=== PATIENT | male | born 1950 | race Caucasian/White ===

== ENCOUNTER 2019-07-29 15:42 | Emergency (ER) | payer MEDICARE ==
[~2019-07-29] VITALS: Ht 170.2 cm; Wt 85.0 kg
[~2019-07-29 15:42] MED LIST: AMOXICILLIN500 MG PO; BP MED; DIOVAN160 MG OR; FUROSEMIDE40 MG PO; HYDROCHLOROT12.5 MG OR; LISINOPRIL10 MG PO; LISINOPRIL5 MG PO; LOPRESSOR50 M1 PO; LOPRESSOR50 MG PO; METFORMIN500 MG PO; NO MEDS; NOVOLIN N1000 UNITS SC; NOVOLIN R IJ; NOVOLIN R SC; NOVOLOG MIX100 U/ML SC; OXYCOD/APAP1 TA3 PO; OXYCONTIN10 MG PO; PLAVIX75 MG PO; PRAVASTATIN20 MG PO; TRAMADOL HCL50 MG PO; ULTRAM50 M1 PO
[2019-07-29] MEDS ORDERED: METFORMIN500 MG PO (16:05)
[2019-07-29 17:03] LABS: IMMATURE GRANULOCYTES 0.3 % (0.0-5.0); MEAN CORPUSCULAR HGB 29.6 pG CALC (26.0-32.0); MEAN CORPUSCULAR HGB CONC 33.2 g/L CALC (32.0-36.0); NEUT# 4.2 thou/uL (1.82-7.42); RED BLOOD COUNT 4.09 mill/uL (4.70-6.10); RED CELL DISTRI WIDTH 14.5 % (11.5-15.5)
[2019-07-29 17:04] LABS: HEMATOCRIT 36.4 % (39.0-50.0); HEMOGLOBIN 12.1 g/dl (14.0-18.0)
[2019-07-29 17:27] LABS: ALKALINE PHOSPHATASE 85 u/l (38-126); BILIRUBIN, TOTAL 0.5 mg/dL (0.0-1.4); BUN 12 mg/dL (8-23); BUN/CREATININE RATIO 14 (12-20 (CALC)); CARBON DIOXIDE 25 mmol/l (22-30); CREATININE 0.9 mg/dL (0.7-1.3); GFR > 60 ML/MIN (>=60 (CALC)); GFR FOR AFR.AMER. > 60 ML/MIN (>=60 (CALC)); SGOT/AST 22 u/l (19-48); SODIUM 142 mmol/l (137-146)
[2019-07-29 17:35] LABS: ALBUMIN 3.6 g/dL (3.2-5.0); ANION GAP 13 (6-22 (CALC)); CHLORIDE 108 mmol/l (95-108); TOTAL PROTEIN 6.3 g/dL (6.3-8.2)
[2019-07-29 17:39] LABS: MYOGLOBIN 39 ng/mL (0 - 121)
[2019-07-29 17:59] LABS: URINE BILIRUBIN - DIPSTICK NEGATIVE (NEGATIVE); URINE BLOOD DIPSTICK NEGATIVE (NEGATIVE); URINE COLOR YELLOW; URINE GLUCOSE - DIPSTICK NEGATIVE (NEGATIVE); URINE KETONE NEGATIVE (NEGATIVE); URINE LEUK ESTERASE NEGATIVE (NEGATIVE); URINE NITRITE - DIPSTICK NEGATIVE (Negative); URINE PROTEIN - DIPSTICK TRACE mg/dL (NEG-TRACE); URINE SPECIFIC GRAVITY 1.015
[2019-07-29 18:02] LABS: BARBITURATES NEGATIVE (NEGATIVE); COCAINE NEGATIVE (NEGATIVE); METHADONE NEGATIVE (NEGATIVE); OXCYCODONE NEGATIVE (NEGATIVE); TETRAHYDROCANNABIONOL NEGATIVE (NEGATIVE); TRICYLIC ANTIDEPRESSANTS NEGATIVE (NEGATIVE)
[2019-07-29] MEDS ORDERED: TAMSULOSIN0.4 MG PO (18:17)
[2019-07-29] MEDS ORDERED: ATORVASTATIN CA80 MG PO (18:17)
[2019-07-29] MEDS ORDERED: FUROSEMIDE20 MG PO (18:17)
[2019-07-29] MEDS ORDERED: LISINOPRIL20 MG PO (18:17)
[2019-07-29] MEDS ORDERED: PROZAC20 M1 PO (18:17)
[2019-07-29] MEDS ORDERED: TOPROL XL25 M1 PO (18:17)
[2019-07-29] MEDS ORDERED: APRESOLINE25 MG/TAB PO (18:17)
[2019-07-29] MEDS ORDERED: METFORMIN500 M1 PO (18:17)
[2019-07-29 18:30] VITALS: BP 125/86
== END 2019-07-29 18:30 | disposition home or self-care (01) ==
LOC: ED 15:42
PROVIDERS: Emergency Medicine
DX: Z76.0 Encounter for issue of repeat prescription (principal); R53.1 Weakness; I10 Essential (primary) hypertension; E11.9 Type 2 diabetes mellitus without complications; Z79.84 Long term (current) use of oral hypoglycemic drugs

== ENCOUNTER 2020-01-18 | Emergency (ER) | payer MEDICARE ==
[~2020-01-18] MED LIST changes: +APRESOLINE25 MG/TAB PO; +ATORVASTATIN CA80 MG PO; +FUROSEMIDE20 MG PO; +LISINOPRIL20 MG PO; +METFORMIN500 M1 PO; +PROZAC20 M1 PO; +TAMSULOSIN0.4 MG PO; +TOPROL XL25 M1 PO
[2020-01-18 17:19] LABS: IMMATURE GRANULOCYTES 0.2 % (0.0-5.0); MEAN CELL VOLUME 90.4 fL CALC (80.0-100.0); MEAN CORPUSCULAR HGB 30.6 pG CALC (26.0-32.0); MEAN CORPUSCULAR HGB CONC 33.9 g/L CALC (32.0-36.0); NEUT# 4.11 thou/uL (1.82-7.42); RED BLOOD COUNT 4.77 mill/uL (4.70-6.10); RED CELL DISTRI WIDTH 12.9 % (11.5-15.5)
[2020-01-18 17:20] LABS: HEMATOCRIT 43.1 % (39.0-50.0); HEMOGLOBIN 14.6 g/dl (14.0-18.0)
[2020-01-18] MEDS ORDERED: BUPROPION150 M3 PO (17:36)
[2020-01-18] MEDS ORDERED: CLOPIDOGREL75 MG PO (17:36)
[2020-01-18 17:37] LABS: ALBUMIN 4.2 g/dL (3.2-5.0); ALKALINE PHOSPHATASE 114 u/l (38-126); ANION GAP 15 (6-22 (CALC)); BUN 11 mg/dL (8-23); BUN/CREATININE RATIO 12 (12-20 (CALC)); CARBON DIOXIDE 24 mmol/l (22-30); CHLORIDE 106 mmol/l (95-108); CREATININE 0.9 mg/dL (0.7-1.3); ETHYL ALCOHOL 0 mg/dl (0-30); GFR > 60 ML/MIN (>=60 (CALC)); GFR FOR AFR.AMER. > 60 ML/MIN (>=60 (CALC)); POTASSIUM 3.5 mmol/l (3.5-5.1); SGOT/AST 23 u/l (19-48); SODIUM 141 mmol/l (137-146); TOTAL PROTEIN 7.3 g/dL (6.3-8.2)
[2020-01-18 17:43] LABS: BILIRUBIN, TOTAL 0.9 mg/dL (0.0-1.4)
[2020-01-18 18:46] LABS: URINE BLOOD DIPSTICK NEGATIVE (NEGATIVE); URINE COLOR YELLOW; URINE GLUCOSE - DIPSTICK NEGATIVE (NEGATIVE); URINE KETONE 15 mg/dL (NEGATIVE); URINE LEUK ESTERASE NEGATIVE (NEGATIVE); URINE NITRITE - DIPSTICK NEGATIVE (Negative); URINE PH 7.5 (4.5-8.0); URINE PROTEIN - DIPSTICK NEGATIVE (NEG-TRACE)
[2020-01-18 18:48] LABS: URINE BILIRUBIN - DIPSTICK NEGATIVE (NEGATIVE)
[2020-01-18 18:49] LABS: BARBITURATES NEGATIVE (NEGATIVE); COCAINE NEGATIVE (NEGATIVE); METHADONE NEGATIVE (NEGATIVE); OXCYCODONE NEGATIVE (NEGATIVE); TETRAHYDROCANNABIONOL NEGATIVE (NEGATIVE); TRICYLIC ANTIDEPRESSANTS NEGATIVE (NEGATIVE)
== END 2020-01-18 19:14 | disposition home or self-care (01) ==
PROVIDERS: Family Medicine
DX: F10.27 Alcohol dependence with alcohol-induced persisting dementia (principal); F32.9 Major depressive disorder, single episode, unspecified; I10 Essential (primary) hypertension; E11.9 Type 2 diabetes mellitus without complications; Z95.1 Presence of aortocoronary bypass graft; Z95.5 Presence of coronary angioplasty implant and graft; Z95.0 Presence of cardiac pacemaker; Z79.84 Long term (current) use of oral hypoglycemic drugs

== ENCOUNTER 2020-02-20 18:14 | Observation (INO) | payer MEDICARE ==
[~2020-02-20] VITALS: Ht 170.2 cm; Wt 76.0 kg
[~2020-02-20 18:14] MED LIST changes: +BUPROPION150 M3 PO; +CLOPIDOGREL75 MG PO
--- NOTE | 2020-02-20 18:20 | NUR ---
PT TO ROOM VIA STRETCHER ALERT AND RESPONSIVE
--- NOTE | 2020-02-20 18:42 | NUR ---
PT CONFUSED TALKING ABOUT SNAKES BEING THRISTY AND BEING BIT 4 TIMES, UNABLE TO OBTAINED ACCURATE MED REC INFORMATION
[2020-02-20 18:57] LABS: HEMATOCRIT 38.9 % (39.0-50.0); HEMOGLOBIN 13.5 g/dl (14.0-18.0); IMMATURE GRANULOCYTES 0.2 % (0.0-5.0); MEAN CORPUSCULAR HGB 30.5 pG CALC (26.0-32.0); MEAN CORPUSCULAR HGB CONC 34.7 g/dL CAL (32.0-36.0); NEUT# 7.17 thou/uL (1.82-7.42); RED BLOOD COUNT 4.42 mill/uL (4.70-6.10); RED CELL DISTRI WIDTH 13.5 % (11.5-15.5)
[2020-02-20 19:14] LABS: ALBUMIN 3.9 g/dL (3.2-5.0); ALKALINE PHOSPHATASE 102 u/l (38-126); ANION GAP 12 (6-22 (CALC)); BILIRUBIN, TOTAL 0.9 mg/dL (0.0-1.4); BUN 11 mg/dL (8-23); BUN/CREATININE RATIO 11 (12-20 (CALC)); CARBON DIOXIDE 26 mmol/l (22-30); CHLORIDE 105 mmol/l (95-108); CPK 49 u/l (52-200); GFR > 60 ML/MIN (>=60 (CALC)); GFR FOR AFR.AMER. > 60 ML/MIN (>=60 (CALC)); POTASSIUM 3.4 mmol/l (3.5-5.1); SGOT/AST 29 u/l (19-48); SODIUM 140 mmol/l (137-146); TOTAL PROTEIN 7.1 g/dL (6.3-8.2)
--- NOTE | 2020-02-20 19:24 | NUR ---
PT DENIES COMPLAINTS. RESPS EVEN, UNLABBORED. PT ALERT TO NAME ONLY AT THIS TIME.
[2020-02-20 19:26] LABS: MYOGLOBIN 64 ng/mL (0 - 121)
[2020-02-20 20:17] LABS: URINE BLOOD DIPSTICK SMALL (NEGATIVE); URINE COLOR YELLOW; URINE GLUCOSE - DIPSTICK NEGATIVE (NEGATIVE); URINE KETONE TRACE mg/dL (NEGATIVE); URINE LEUK ESTERASE TRACE (NEGATIVE); URINE NITRITE - DIPSTICK NEGATIVE (Negative); URINE PROTEIN - DIPSTICK 30 mg/dL (NEG-TRACE); URINE SPECIFIC GRAVITY >=1.030
[2020-02-20 20:19] LABS: URINE BILIRUBIN - DIPSTICK NEGATIVE (NEGATIVE)
[2020-02-20 20:22] LABS: BARBITURATES NEGATIVE (NEGATIVE); COCAINE NEGATIVE (NEGATIVE); METHADONE NEGATIVE (NEGATIVE); OXCYCODONE NEGATIVE (NEGATIVE); TETRAHYDROCANNABIONOL NEGATIVE (NEGATIVE); TRICYLIC ANTIDEPRESSANTS NEGATIVE (NEGATIVE)
--- NOTE | 2020-02-20 21:04 | NUR ---
PT SLEEPING. RESPS EVEN, UNLABBORED
--- NOTE | 2020-02-20 22:00 | NUR ---
REPORT ATTEMPTED NURSE NOT READY. PT SLEEPING. RESP EVEN,UNLABBORED
[2020-02-20 22:49] VITALS: BP 169/86
--- NOTE | 2020-02-20 23:40 | NUR ---
Received report from ED NURSE BOYD, PATIENT TRANSPORTED VIA BED, PATIENT AMBULATED GOING TO BED, ORIENETD TO ROOM AND CALL LIGHT SYSTEM.
[2020-02-20 23:53] VITALS: BP 139/83
--- NOTE | 2020-02-21 | NUR ---
PATIENT APPEARS TO BE SLEEPING WITH EYES CLOSED, WITH EVEN UNLABORED BREATHING CALL LIGHT AT REACH.
[2020-02-21 03:57] VITALS: BP 134/80
--- NOTE | 2020-02-21 05:05 | NUR ---
PATIENT APPEARS TO BE SLEEPING WITH EYES CLOSED EVEN UNLABORED BREATHING CALL LIGHT AT REACH.
--- NOTE | 2020-02-21 07:15 | NUR ---
REPORT RECEIVED FROM JOAQUIN CHUN;PT APPEARS TO BE SLEEPING IN SUPINE POSITION;NO S/S OF DISTRESS NOTED;RESPIRATIONS EVEN AND UNLABORED ON RA;TELE MONITORING IN PLACE;IV FLUIDS INFUSING WITH EASE PER ORDER;ALL SAFETY PRECAUTIONS IN PLACE WITH BED IN THE LOWEST POSITION AND BED ALARM ON FOR SAFETY;CALL LIGHT IN REACH;WILL CONTINUE TO MONITOR
[2020-02-21] MEDS ORDERED: LOPRESSOR25 MG PO (08:03)
[2020-02-21] MEDS ORDERED: BUPROPION HCL150 M2 PO (08:03)
[2020-02-21] MEDS ORDERED: CLOPIDOGREL75 MG PO (08:03)
[2020-02-21] MEDS ORDERED: LISINOPRIL20 MG PO (08:03)
[2020-02-21] MEDS ORDERED: ATORVASTATIN CA80 MG PO (08:04)
[2020-02-21] MEDS ORDERED: METFORMIN500 M2 PO (08:04)
[2020-02-21] MEDS ORDERED: TAMSULOSIN HCL0.4 MG PO (08:05)
[2020-02-21] MEDS ORDERED: FLUOXETINE40 MG PO (08:05)
--- NOTE | 2020-02-21 08:05 | NUR ---
ADDED MEDS FROM PT'S PHARMACY CLAIM HISTORY TO [facility]LE [facility]
[2020-02-21 08:53] VITALS: BP 160/85
--- NOTE | 2020-02-21 09:00 | NUR ---
PT RESTING IN SEMI FOWLERS POSITION,A&O TO PERSON AND PLACE;VS OBTAINED AND ASSESSMENT COMPLETED;PT DENIES ANY CURRENT PAIN OR DISCOMFORTS;RESPIRATIONS EVEN AND UNLABORED ON RA,CLEAR LUNG SOUNDS;ABDOMEN SOFT ON PALPATION AND ACTIVE IN ALL 4 QUADRANTS;STRONG PEDAL PULSES;SKIN INTACT;TELE MONITORING IN PLACE;EMS #20G TO LFA INFUSING NS @ 100ML/HR,SITE APPEARS HEALTHY;PT DENIES ANY ADDITIONAL NEEDS AT THIS TIME AND IS ENCOURAGED TO CALL FOR ASSISTANCE IF NEEDED;FALL PRECAUTIONS IN PLACE WITH BED IN THE LOWEST POSITION AND BED ALARM ON FOR SAFETY;CALL LIGHT IN REACH;WILL CONTINUE TO MONITOR
--- NOTE | 2020-02-21 10:29 | NUR ---
AT BEDSIDE DISCUSSING POC.
[2020-02-21 10:55] VITALS: BP 147/78
--- NOTE | 2020-02-21 11:05 | NUR ---
PT RESTING IN SEMI FOWLERS POSITION;RESPIRATIONS EVEN AND UNLABORED ON RA;PT DENIES ANY CURRENT PAIN OR DISCOMFORTS;TELE MONITORING IN PLACE;IV FLUIDS CONTINUE TO INFUSE WITH EASE PER ORDER;ACCUCHECK 128,NO COVERAGE NEEDED;ASSESSMENT REMAINS UNCHANGED AT THIS TIME;PT DENIES ANY ADDITIONAL NEEDS AND IS ENCOURAGED TO CALL FOR ASSISTANCE IF NEEDED;BED IN THE LOWEST POSITION WITH BED ALARM ON FOR SAFETY;CALL LIGHT IN REACH;WILL CONTINUE TO MONITOR
[2020-02-21 14:55] VITALS: BP 132/68
--- NOTE | 2020-02-21 15:50 | NUR ---
PT RESTING IN SEMI FOWLERS POSITION;RESPIRATIONS EVEN AND UNLABORED ON RA;PT DENIES ANY CURRENT PAIN OR NEEDS;TELE MONITORING IN PLACE;IV FLUIDS CONTINUE TO INFUSE TO LFA WITH EASE;ALL SAFETY PRECAUTIONS REMAIN IN PLACE WITH BED IN THE LOWEST POSITION AND CALL LIGHT IN REACH;WILL CONTINUE TO MONITOR
--- NOTE | 2020-02-21 18:43 | NUR ---
EMS REMOVED FROM LAC WITH CATHETER INTACT DUE TO EXPIRATION, NEW #22G STARTED TO RAC ON 2ND ATTEMPT BY THIS WRITTER,PT TOLERATED WELL AND FLUIDS RESTARTED AT THIS TIME;WILL CONTINUE TO MONITOR
--- NOTE | 2020-02-21 19:05 | NUR ---
ASSESSMENT COMPLETED. NO DISTRESS NOTED;ALERT AND ORIENTED TO PLACE AND PERSON. BED ALARM SET FOR SAFETY AND RE-EDUCATED WINCHER LIGHT; VERBALIZES UNDERSTANDING. DENIES NEEDS/PAIN. VOICES NO CONCERNS. WILL CONTINUE TO MONITOR.
[2020-02-21 19:18] VITALS: BP 153/89
--- NOTE | 2020-02-21 23:07 | NUR ---
RESTING IN BED WITH EYES CLOSED; RESP. EVEN AND UNLABORED. AWAKENS WITH VERBAL STIMULI. BED ALARM ON. CALL LIGHT IS IN REACH.
[2020-02-21 23:48] VITALS: BP 156/85
[2020-02-22] VITALS (8 sets, daily range): BP systolic 140–190; BP diastolic 78–94
--- NOTE | 2020-02-22 02:26 | NUR ---
PT. RESTING IN BED WITH EYES CLOSED; RESP. EVEN AND UNLABORED. CALL LIGHT IS IN REACH.
--- NOTE | 2020-02-22 07:15 | NUR ---
REPORT RECEIVED FROM JOAQUIN MALONE;PT APPEARS TO BE SLEEPING IN SEMI FOWLERS POSITION;RESPIRATIONS EVEN AND UNLABORED ON RA;NO S/S OF DISTRESS NOTED;TELE MONITORING IN PLACE;IV FLUIDS INFUSING WITH EASE PER ORDER;ACCCUHECK, ORANGE JUICE WAS PROVIDED;ALL SAFETY PRECAUTIONS REINFORCED WITH BED IN THE LOWEST POSITION AND BED ALARM ON FOR SAFETY;CALL LIGHT IN REACH;WILL CONTINUE TO MONITOR
--- NOTE | 2020-02-22 08:10 | NUR ---
PT RESTING IN SEMI FOWLERS POSITION,A&O X2;VS OBTAINED AND ASSESSMENT COMPLTED;CURRENT BP 179/93 HR 61, ALL MORNING MEDICATIONS ADMINISTERED;PT DENIES ANY CURRENT PAIN OR DISCOMFORTS,PAIN SCALE AND REPORTING EDUCATED;RESPIRATIONS EVEN AND UNLABORED ON RA,CLEAR LUNG SOUNDS;ABDOMEN SOFT ON PALPATION AND ACTIVE IN ALL 4 QUADRANTS;WEAK PEDAL PULSES;SKIN INTACT;TELE MONITORING IN PLACE;#22G TO RAC INFUSING NS @ 100ML/HR,SITE APPEARS HEALTHY;PT DENIES ANY ADDITIONAL NEEDS AND IS ENCOURAGED TO CALL FOR ASSISTANCE IF NEEDED;BED ALARM ON FOR SAFETY;CALL LIGHT IN REACH;WILL CONTINUE TO MONITOR
--- NOTE | 2020-02-22 09:52 | NUR ---
BP RE-CHECK 170/89 HR 62, DENNISANRP ALREADY NOTIFIED OF ELEVATED BP.NO NEW ORDERS RECEIVED AT THIS TIME.
--- NOTE | 2020-02-22 10:00 | NUR ---
AT BEDSIDE DISCUSSING POC INCLUDING POTENTIAL D/C HOME.
[2020-02-22] MEDS ORDERED: KEFLEX500 MG PO (10:01)
--- NOTE | 2020-02-22 10:33 | NUR ---
PT SITTING AT BEDSIDE ANXIOUS TO GO HOME, BP 190/80 MANUALLY.REGINALD COLLINS NOTIFIED AND NEW ORDERS TO BE RECIEVED.
--- NOTE | 2020-02-22 11:05 | NUR ---
PT RESTING IN SEMI FOWLERS POSITION,CONTINUES TO BE ANXIOUS TO GO HOME;RESPIRATIONS EVEN AND UNLABORED ON RA;PT DENIES ANY CURRENT PAIN OR NEEDS;TELE MONITORING IN PLACE;ACCUCHECK 97, NO COVERAGE NEEDED;BP 182/94 HR 61, PT MEDICATED WITH X1 NORVASC 5MG PO;PT DENIES ANY ADDITIONAL NEEDS AT THIS TIME AND IS ENCOURAGED TO CALL FOR ASSISTANCE IF NEEDED;FALL PRECAUTIONS REMAIN IN PLACE WITH BED ALARM ON FOR SAFETY;CALL LIGHT IN REACH;WILL CONTINUE TO MONITOR
--- NOTE | 2020-02-22 12:23 | NUR ---
BP RE-CHECK 170/90
--- NOTE | 2020-02-22 12:39 | NUR ---
PT BP 170/90, PT TO BE MEDICATED WITH PRN APRESOLINE 10MG IVP BY JOAQUIN CHIANG;WILL CONTINUE TO MONITOR FOR EFFECTIVENESS
--- NOTE | 2020-02-22 13:09 | NUR ---
BP RE-CHECK 159/79 HR 70.
--- NOTE | 2020-02-22 13:12 | NUR ---
SPOKE WITH PATRICIA (SON) REGARDING D/C;INSTRUCTED ANDSEJALW ON ABX KEFLEX WHICH WAS SENT TO [facility] AND TO MONITOR PT BP, SON VERBALIZES UNDERSTANDING;SON NOT ABLE TO MEMBERSHIP SALES REPRESENTATIVE PT UNTIL APPROX 1700;NOTIFIED PT AND VERBALIZES UNDERSTANDING;WILL CONTINUE TO MONITOR
--- NOTE | 2020-02-22 15:35 | NUR ---
PT RESTING IN SEMI FOWLERS POSITION;RESPIRATIONS EVEN AND UNLABORED ON RA;PT DENIES ANY CURRENT PAIN OR NEEDS;TELE MONITORING IN PLACE;PT RE-EDUCATED ON SON PICKING HIM UP FOR D/C AT APPROX 1700 AND VERBALIZES UNDERSTANDING;PT ENCOURAGED TO CALL FOR ASSISTANCE IF NEEDED;ASSESSMENT REMAINS UNCHANGED AT THIS TIME; BED ALARM REMAINS ACTIVE;CALL LIGHT IN REACH;WILL CONTINUE TO MONITOR
--- NOTE | 2020-02-22 16:25 | NUR ---
ALL DISCHARGE INSTRUCTIONS PROVIDED AT THIS TIME;PT INSTRUCTED TO TAKE ABX DIRECTED AND MONITOR BLOOD PRESURE;KELFEX ABX PROVIDED PER CAYDEN;SON (PATRICIA) ALSO EDUCATED ON ALL D/C INSTRUCTIONS AND VERBALIZED UNDERSTANDING;WHEELCHAIR TO BE PROVIDED FOR D/C HOME.[facility] TO TRANSPORT PT HOME.
== END 2020-02-22 16:29 | disposition home or self-care (01) ==
LOC: ED 18:14 → ED-I 19:55 → ED 20:37 → MS2 20:38 → ED-I 20:38 → MS2 20:39
PROVIDERS: Emergency Medicine; ADMIT Internal Medicine; ATTEND Internal Medicine
DX: F03.91 Unspecified dementia, unspecified severity, with behavioral disturbance (principal); Z91.83 Wandering in diseases classified elsewhere; N39.0 Urinary tract infection, site not specified; E87.6 Hypokalemia; I10 Essential (primary) hypertension; E11.9 Type 2 diabetes mellitus without complications; H91.91 Unspecified hearing loss, right ear; Z95.1 Presence of aortocoronary bypass graft; Z95.5 Presence of coronary angioplasty implant and graft; Z95.0 Presence of cardiac pacemaker; Z79.84 Long term (current) use of oral hypoglycemic drugs
CPT/HCPCS: G0378

== ENCOUNTER 2020-03-14 | Emergency (ER) | payer MEDICARE ==
[~2020-03-14] MED LIST changes: +BUPROPION HCL150 M2 PO; +FLUOXETINE40 MG PO; +KEFLEX500 MG PO; +LOPRESSOR25 MG PO; +METFORMIN500 M2 PO; +TAMSULOSIN HCL0.4 MG PO
[2020-03-14] MEDS ORDERED: LIBRIUM25 M1 PO (15:14)
[2020-03-14] MEDS ORDERED: VIVARIN PO (15:16)
[2020-03-14 15:20] LABS: IMMATURE GRANULOCYTES 0.2 % (0.0-5.0); MEAN CORPUSCULAR HGB 30.2 pG CALC (26.0-32.0); MEAN CORPUSCULAR HGB CONC 33.9 g/dL CAL (32.0-36.0); NEUT# 6.59 thou/uL (1.82-7.42); RED BLOOD COUNT 5.2 mill/uL (4.70-6.10); RED CELL DISTRI WIDTH 13.4 % (11.5-15.5)
[2020-03-14 15:23] LABS: HEMATOCRIT 46.3 % (39.0-50.0); HEMOGLOBIN 15.7 g/dl (14.0-18.0)
[2020-03-14 15:39] LABS: ALKALINE PHOSPHATASE 124 u/l (38-126); AMYLASE 54 u/l (30-110); ANION GAP 16 (6-22 (CALC)); BUN 16 mg/dL (8-23); BUN/CREATININE RATIO 19 (12-20 (CALC)); CARBON DIOXIDE 25 mmol/l (22-30); CHLORIDE 101 mmol/l (95-108); CREATININE 0.9 mg/dL (0.7-1.3); GFR > 60 ML/MIN (>=60 (CALC)); GFR FOR AFR.AMER. > 60 ML/MIN (>=60 (CALC)); LIPASE 81 u/l (23-300); MAGNESIUM 1.7 mg/dL (1.6-2.3); POTASSIUM 3.6 mmol/l (3.5-5.1); SGOT/AST 32 u/l (19-48); SODIUM 138 mmol/l (137-146); TOTAL PROTEIN 8.3 g/dL (6.3-8.2)
[2020-03-14 15:40] LABS: ALBUMIN 4.7 g/dL (3.2-5.0)
[2020-03-14 15:51] LABS: MYOGLOBIN 33 ng/mL (0 - 121)
[2020-03-14 17:52] LABS: URINE BILIRUBIN - DIPSTICK NEGATIVE (NEGATIVE); URINE BLOOD DIPSTICK NEGATIVE (NEGATIVE); URINE COLOR YELLOW; URINE GLUCOSE - DIPSTICK NEGATIVE (NEGATIVE); URINE KETONE 15 mg/dL (NEGATIVE); URINE LEUK ESTERASE NEGATIVE (NEGATIVE); URINE NITRITE - DIPSTICK NEGATIVE (Negative); URINE PROTEIN - DIPSTICK TRACE mg/dL (NEG-TRACE); URINE SPECIFIC GRAVITY >=1.030
[2020-03-14] MEDS ORDERED: PHENERGAN25 MG/TAB PO (18:08)
== END 2020-03-14 19:15 | disposition home or self-care (01) ==
PROVIDERS: Family Medicine
DX: R11.10 Vomiting, unspecified (principal); I10 Essential (primary) hypertension; E11.9 Type 2 diabetes mellitus without complications; H91.91 Unspecified hearing loss, right ear; Z79.84 Long term (current) use of oral hypoglycemic drugs; Z95.0 Presence of cardiac pacemaker

== ENCOUNTER 2020-10-24 23:09 | Emergency (ER) | payer MEDICARE, OTHER ==
[~2020-10-24] VITALS: Wt 71.3 kg
[~2020-10-24 23:09] MED LIST changes: +LIBRIUM25 M1 PO; +PHENERGAN25 MG/TAB PO; +VIVARIN PO
[2020-10-24] MEDS ORDERED: ATORVASTATIN CA80 MG PO (23:35)
[2020-10-24] MEDS ORDERED: BUPROPION HCL150 M2 PO (23:35)
[2020-10-24] MEDS ORDERED: IRON OTC PO (23:37)
[2020-10-25 00:33] LABS: HEMATOCRIT 42.3 % (39.0-50.0); HEMOGLOBIN 14.5 g/dl (14.0-18.0); IMMATURE GRANULOCYTES 0.4 % (0.0-5.0); MEAN CELL VOLUME 88.9 fL CALC (80.0-100.0); MEAN CORPUSCULAR HGB 30.5 pG CALC (26.0-32.0); MEAN CORPUSCULAR HGB CONC 34.3 g/dL CAL (32.0-36.0); NEUT# 8.73 thou/uL (1.82-7.42); RED BLOOD COUNT 4.76 mill/uL (4.70-6.10); RED CELL DISTRI WIDTH 13.8 % (11.5-15.5)
[2020-10-25 00:45] LABS: ALKALINE PHOSPHATASE 95 u/l (38-126); AMYLASE 49 u/l (30-110); ANION GAP 13 (6-22 (CALC)); BILIRUBIN, TOTAL 0.9 mg/dL (0.0-1.4); BUN 9 mg/dL (8-23); BUN/CREATININE RATIO 12 (12-20 (CALC)); CARBON DIOXIDE 28 mmol/l (22-30); CHLORIDE 100 mmol/l (95-108); CREATININE 0.8 mg/dL (0.7-1.3); GFR > 60 ML/MIN (>=60 (CALC)); GFR FOR AFR.AMER. > 60 ML/MIN (>=60 (CALC)); LIPASE 51 u/l (23-300); POTASSIUM 2.9 mmol/l (3.5-5.1); SGOT/AST 23 u/l (19-48); SODIUM 138 mmol/l (137-146)
[2020-10-25 00:57] LABS: MYOGLOBIN 38 ng/mL (0 - 121)
[2020-10-25 03:56] LABS: URINE BILIRUBIN - DIPSTICK NEGATIVE (NEGATIVE); URINE BLOOD DIPSTICK NEGATIVE (NEGATIVE); URINE COLOR YELLOW; URINE GLUCOSE - DIPSTICK NEGATIVE (NEGATIVE); URINE KETONE 15 mg/dL (NEGATIVE); URINE LEUK ESTERASE NEGATIVE (NEGATIVE); URINE NITRITE - DIPSTICK NEGATIVE (Negative); URINE PROTEIN - DIPSTICK NEGATIVE (NEG-TRACE); URINE SPECIFIC GRAVITY 1.015; URINE UROBILINOGEN - DIPSTICK 0.2 E.U./dL (0.2)
[2020-10-25] MEDS ORDERED: CIPROFLOXACN500 MG PO (04:15)
[2020-10-25] MEDS ORDERED: METRONIDAZOL500 MG PO (04:15)
[2020-10-25] MEDS ORDERED: ONDANSETRON4 MG PO (04:15)
[2020-10-25] MEDS ORDERED: VITAMIN B1100 M1 PO (05:12)
[2020-10-25] MEDS ORDERED: THIAMINE50 MG PO (05:25)
[2020-10-25] MEDS ORDERED: FOLIC ACID1 MG PO (05:45)
[2020-10-25 06:15] VITALS: BP 144/79
== END 2020-10-25 06:15 | disposition home or self-care (01) ==
LOC: ED 23:09
PROVIDERS: Emergency Medicine
DX: E87.6 Hypokalemia (principal); K57.32 Diverticulitis of large intestine without perforation or abscess without bleeding; I10 Essential (primary) hypertension; E11.9 Type 2 diabetes mellitus without complications; F10.10 Alcohol abuse, uncomplicated; I49.5 Sick sinus syndrome; Z95.1 Presence of aortocoronary bypass graft; Z95.0 Presence of cardiac pacemaker; Z79.84 Long term (current) use of oral hypoglycemic drugs; Z20.828 Contact with and (suspected) exposure to other viral communicable diseases
CPT/HCPCS: J1956; Q9967

== ENCOUNTER 2020-11-06 16:56 | Observation (INO) | payer MEDICARE, OTHER ==
[~2020-11-06] VITALS: Ht 172.7 cm; Wt 68.0 kg
[~2020-11-06 16:56] MED LIST changes: +CIPROFLOXACN500 MG PO; +FOLIC ACID1 MG PO; +IRON OTC PO; +METRONIDAZOL500 MG PO; +ONDANSETRON4 MG PO; +THIAMINE50 MG PO; +VITAMIN B1100 M1 PO
--- NOTE | 2020-11-06 16:58 | NUR ---
PT WHEELED TO ROOM # 10 FOR BEDSIDE TRIAGE.
[2020-11-06 17:40] LABS: HEMATOCRIT 46.3 % (39.0-50.0); HEMOGLOBIN 15.9 g/dl (14.0-18.0); IMMATURE GRANULOCYTES 0.4 % (0.0-5.0); MEAN CORPUSCULAR HGB 30.6 pG CALC (26.0-32.0); MEAN CORPUSCULAR HGB CONC 34.3 g/dL CAL (32.0-36.0); NEUT# 8.28 thou/uL (1.82-7.42); RED BLOOD COUNT 5.2 mill/uL (4.70-6.10); RED CELL DISTRI WIDTH 13.7 % (11.5-15.5)
--- NOTE | 2020-11-06 17:52 | NUR ---
PT URINATED INTO STOOL SAMPLE WHEN ATTEMPTED TO COLLECT MD AWARE
[2020-11-06 17:58] LABS: ALKALINE PHOSPHATASE 80 u/l (38-126); AMYLASE < 30 u/l (30-110); ANION GAP 14 (6-22 (CALC)); BILIRUBIN, TOTAL 1.3 mg/dL (0.0-1.4); BUN 14 mg/dL (8-23); BUN/CREATININE RATIO 17 (12-20 (CALC)); CARBON DIOXIDE 27 mmol/l (22-30); CHLORIDE 100 mmol/l (95-108); CREATININE 0.8 mg/dL (0.7-1.3); GFR > 60 ML/MIN (>=60 (CALC)); GFR FOR AFR.AMER. > 60 ML/MIN (>=60 (CALC)); LIPASE 77 u/l (23-300); POTASSIUM 3.2 mmol/l (3.5-5.1); SGOT/AST 36 u/l (19-48); SODIUM 138 mmol/l (137-146); TOTAL PROTEIN 6.9 g/dL (6.3-8.2)
--- NOTE | 2020-11-06 18:28 | NUR ---
PT WITHOUT ACUTE DISTRESS
--- NOTE | 2020-11-06 19:50 | NUR ---
GAVE PT A URINAL TO PEE TO OBTAIN SPECIMEN
--- NOTE | 2020-11-06 20:47 | NUR ---
NURSE PERFORMED STRAIGHT CATH FOR URINE SPECIMEN
--- NOTE | 2020-11-06 20:50 | NUR ---
PT COMPLAINT OF POTASSIUM HURTING HIS LEFT ARM. NURSE SLOWED RATE TO 25 ML/HR AND APPLIED COLD COMPRESS.
[2020-11-06 21:11] LABS: URINE BLOOD DIPSTICK NEGATIVE (NEGATIVE); URINE GLUCOSE - DIPSTICK NEGATIVE (NEGATIVE); URINE KETONE 15 mg/dL (NEGATIVE); URINE LEUK ESTERASE NEGATIVE (NEGATIVE); URINE PH 5.5 (4.5-8.0); URINE PROTEIN - DIPSTICK NEGATIVE (NEG-TRACE); URINE SPECIFIC GRAVITY >=1.030; URINE UROBILINOGEN - DIPSTICK 0.2 E.U./dL (0.2)
[2020-11-06 21:13] LABS: URINE BILIRUBIN - DIPSTICK NEGATIVE (NEGATIVE); URINE COLOR DK. YELLOW; URINE NITRITE - DIPSTICK POSITIVE (Negative)
[2020-11-06 21:25] LABS: URINE RBC 0-2 RBC/hpf (0-5); URINE WBC 0-2 WBC/hpf (0-5)
--- NOTE | 2020-11-06 21:44 | NUR ---
PT RESTING WITH EYES CLOSED NO S/S OF DISTRESS.
--- NOTE | 2020-11-06 22:01 | NUR ---
REPORT GIVEN TO YEIMY NUÑEZ
--- NOTE | 2020-11-06 22:04 | NUR ---
PT MEDICATED WITH IV BOLUS AND ABX, OFFERED PO FLUIDS AND PT RESTING WITHOUT S/S OF DISCOMFORT.
--- NOTE | 2020-11-06 23:01 | NUR ---
PT RESTING WITH EYES CLOSED SEEMS TO BE SLEEPING. NO S/S OF DISTRESS.
--- NOTE | 2020-11-07 00:15 | NUR ---
PT TRANSFERRING TO [facility] [id number] FOR ADMITION. REPORT GIVEN TO ANAT.
--- NOTE | 2020-11-07 00:15 | NUR ---
PT RESTING IN BED NO S/S OF DISTRESS. AWAITING TRANSPORT TO ROOM. PT BP SLIGHTLY ELEVATED WILL CONTINUE TO MONITOR.
--- NOTE | 2020-11-07 00:57 | NUR ---
PT RESTING WITH EYES CLOSED. BP IS STILL ELEVATED WILL WAIT TO TRANSFER UNTIL BP STABLE. LOPRESSOR ADMINISTERED LESS THAN HOUR AGO.
--- NOTE | 2020-11-07 00:59 | NUR ---
REQUESTED THAT ER HOLD PATIENT IN THE DEPARTMENT IN LIGHT OF ELEVATED BLOOD PRESSURE, TO ASCERTAIN THAT THE MEDSURGE UNIT IS THE APPROPRIATE PLACEMENT FOR THIS PATIENT. ORAL MEDICATION GIVEN AT 0019, REQUESTED THAT BLOOD PRESSURE BE RECHECKED 1 HOUR AFTER ADMINISTRATION. DISCUSSED WITH ER CHARGE NURSE, Cortney TOLBERT RN.
--- NOTE | 2020-11-07 01:45 | NUR ---
BLOOD PRESSURE REMAINS OUTSIDE OF MEDSURG ACCEPTABLE PARAMETERS. FURTHER INERVENTIONS PER ER PHYSICIAN.
--- NOTE | 2020-11-07 01:58 | NUR ---
PT MEDICATED FOR BP. LIGHTS DIMMED/ROOM QUIET. ADVISED THAT WE ARE TRYING TO CONTROL BP BEFORE GOING TO THE FLOOR.
--- NOTE | 2020-11-07 03:00 | NUR ---
PT RESTING WITH EYES CLOSED WITHOUT S/S OF DISTRESS.
--- NOTE | 2020-11-07 04:13 | NUR ---
PT RESTING. APPEARS TO BE SLEEPING. VSShaq WEISS NOTIFIED THAT PT WILL BE COMING TO THE FLOOR.
--- NOTE | 2020-11-07 04:16 | NUR ---
REPORT TO ANAT/MED-SURG
--- NOTE | 2020-11-07 04:25 | NUR ---
PT RECEIVED FROM ED TO ROOM 271. ARRIVES VIA STRETCHER ACCOMPANIED BY AARON NUÑEZ. PT AMBULATORY TO BED. GAIT STEADY AND BALANCED. PT DENIES PAIN AT THIS TIME. ORIENTED TO UNIT, ROOM, CALL JOHNSON, LIGHTS, TV. ICE WATER PROVIDED. CALL JOHNSON WITHIN REACH. AGREES TO CALL PRN.
--- NOTE | 2020-11-07 04:30 | NUR ---
PT TO FLOOR VIA W/C. ASSISTED TO BED. TOP RAILS UP. CALL LIGHT IN REACH.
--- NOTE | 2020-11-07 05:00 | NUR ---
PHYSICAL ASSESMENT COMPLETE. PT CURRENTLY DENIES PAIN OR DISCOMFORT. SCHEDULED MEDICATIONS AND PRN MEDICATION ADMINISTERED, SEE E-MAR. PT DENIES ANY NEEDS AT THIS TIME. PLAN OF CARE REVIEWED, PT DENIES QUESTIONS, VERBALIZES UNDERSTANDING. ITEMS WITHIN REACH, BED LOCKED IN LOW POSITION W/ BEDRAILS UP X2. CALL JOHNSON WITHIN REACH, AGREES TO CALL PRN.
[2020-11-07 05:06] VITALS: BP 128/80
[2020-11-07 05:57] LABS: IMMATURE GRANULOCYTES 0.3 % (0.0-5.0); MEAN CORPUSCULAR HGB 30.2 pG CALC (26.0-32.0); MEAN CORPUSCULAR HGB CONC 33.6 g/dL CAL (32.0-36.0); NEUT# 6.61 thou/uL (1.82-7.42); RED BLOOD COUNT 4.4 mill/uL (4.70-6.10); RED CELL DISTRI WIDTH 13.7 % (11.5-15.5)
[2020-11-07 06:14] LABS: ALKALINE PHOSPHATASE 58 u/l (38-126); ANION GAP 7 (6-22 (CALC)); BUN 9 mg/dL (8-23); BUN/CREATININE RATIO 13 (12-20 (CALC)); CARBON DIOXIDE 30 mmol/l (22-30); CHLORIDE 105 mmol/l (95-108); CREATININE 0.7 mg/dL (0.7-1.3); GFR > 60 ML/MIN (>=60 (CALC)); GFR FOR AFR.AMER. > 60 ML/MIN (>=60 (CALC)); POTASSIUM 3.2 mmol/l (3.5-5.1); SGOT/AST 33 u/l (19-48); SODIUM 138 mmol/l (137-146)
[2020-11-07 06:15] LABS: HEMATOCRIT 39.6 % (39.0-50.0); HEMOGLOBIN 13.3 g/dl (14.0-18.0)
[2020-11-07 06:17] LABS: BILIRUBIN, TOTAL 0.7 mg/dL (0.0-1.4); TOTAL PROTEIN 5.3 g/dL (6.3-8.2)
[2020-11-07 07:33] VITALS: BP 131/81
[2020-11-07] MEDS ORDERED: BUPROPION HCL150 M2 PO (08:08)
[2020-11-07] MEDS ORDERED: CLOPIDOGREL75 MG PO (08:09)
[2020-11-07] MEDS ORDERED: METFORMIN500 M2 PO (08:09)
[2020-11-07] MEDS ORDERED: FOLIC ACID1 MG PO (08:09)
[2020-11-07] MEDS ORDERED: LOPRESSOR25 MG PO (08:10)
[2020-11-07] MEDS ORDERED: ATORVASTATIN CA80 MG PO (08:10)
[2020-11-07] MEDS ORDERED: B-1100 MG PO (08:10)
[2020-11-07] MEDS ORDERED: TAMSULOSIN HCL0.4 MG PO (08:10)
[2020-11-07] MEDS ORDERED: LISINOPRIL20 MG PO (08:11)
[2020-11-07 11:00] VITALS: BP 141/89
[2020-11-07 15:45] VITALS: BP 149/89
[2020-11-07 19:15] VITALS: BP 131/79
--- NOTE | 2020-11-08 00:06 | NUR ---
PT LAYING IN BED WITH EYES CLOSED, APPEARS TO BE SLEEPING, APPEARS COMFORTABLE AND IN NO DISTRESS. RESPIRATIONS REGULAR AND UNLABORED. ITEMS REMAIN WITHIN REACH, CALL JOHNSON REMAINS WITHIN REACH. BED REMAINS LOCKED AND IN LOW POSITION WITH BEDRAILS UP X2. WILL CONTINUE TO MONITOR.
[2020-11-08 00:11] VITALS: BP 137/78
--- NOTE | 2020-11-08 04:01 | NUR ---
PT RESTING IN BED, NO SIGNS OF DISTRESS NOTED, RESP EVEN AND UNLABORED. PT VOICES NO NEEDS OR COMPLAINTS AT THIS TIME. CALL LIGHT IN REACH, CONTINUE TO MONITOR.
[2020-11-08 04:03] VITALS: BP 147/88
--- NOTE | 2020-11-08 07:00 | NUR ---
REPORT RECEIVED FROM JOAQUIN COPPOLA.
--- NOTE | 2020-11-08 07:34 | NUR ---
Patient is screened for PT intervention and no needs are identfied at this time
--- NOTE | 2020-11-08 07:45 | NUR ---
PT RESTING IN SEMI FOWLERS POSITION,A&O X3;VS OBTAINED AND ASSESSMENT COMPLETED,CURRENT BP 172/93 HR 64. ALL MORNING MEDICATIONS TO BE ADMINISTERED AT THIS TIME;PT DENIES ANY CURRENT PAIN OR DISCOMFORTS,PAIN SCALE AND REPORTING EDUCATED;RESPIRATIONS EVEN AND UNLABORED ON RA,CLEAR LUNG SOUNDS;ABDOMEN SOFT ON PALPATION AND ACTIVE IN ALL 4 QUADRANTS;STRONG PEDAL PULSES;SKIN INTACT;TELE MONITORING IN PLACE;#20G TO LAC INFUSING NS @ 100ML/HR,SITE APPEARS HEALTHY;ACCUCHECK 80, NO COVERAGE NEEDED;PT DENIES ANY ADDITIONAL NEEDS AND IS ENCOURAGED TO CALL FOR ASSISTANCE IF NEEDED;CALL LIGHT IN REACH;WILL CONTINUE TO MONITOR
[2020-11-08 07:46] VITALS: BP 172/93
--- NOTE | 2020-11-08 08:40 | NUR ---
BP RE-CHECK 167/89 HR 64.
[2020-11-08 08:42] VITALS: BP 167/89
--- NOTE | 2020-11-08 09:20 | NUR ---
PATEL MONTELONGO AT BEDSIDE DISCUSSING POC WITH PT.
--- NOTE | 2020-11-08 09:59 | NUR ---
AT BEDSIDE DISCUSSING POC.
--- NOTE | 2020-11-08 11:05 | NUR ---
ALL DISCHARGE INSTRUCTIONS PROVIDED AT THIS TIME;PT INSTRUCTED TO ADVANCE DIET TOLERATED, KEEP WELL HYDRATED AND F/U WITH PCP IN NEXT 1-2 WEEKS.PT VERBALIZES UNDERSTANDING AND DENIES ANY ADDITIONAL QUESTIONS OR NEEDS;WHEELCHAIR TO BE PROVIDED FOR D/C HOME;[facility] TO BE NOTIFIED OF D/C HOME FOR TRANSPORTATION;PT DENIES ANY ADDITIONAL NEEDS;CALL LIGHT IN REACH;WILL CONTINUE TO MONITOR
[2020-11-08 11:16] VITALS: BP 156/86
--- NOTE | 2020-11-08 11:23 | NUR ---
PATRICIA TOSCANO (SON) NOTIFIED OF PT D/C. PER SON HE WILL BE HERE SHORTLY TO GROUP PRESIDENT PT. PT NOTIFIED.WILL CONTINUE TO MONITOR
--- NOTE | 2020-11-08 11:49 | NUR ---
Discharge instructions given. Patient verbalizes understanding of same. Discharged in stable condition via Wheelchair to Home with family. All belongings sent with pt. PT TRANSPORTED TO LOBBY VIA WHEELCHAIR ACCOMPANIED BY WRITTER. ALL BELONGINGS LEFT WITH PT.[facility] TO TRANSPORT PT HOME.
== END 2020-11-08 11:48 | disposition home or self-care (01) ==
LOC: ED 16:56 → ED-I 21:40 → ED 21:47 → MS2 21:48
PROVIDERS: Family Medicine; Nurse Practitioner Family; ADMIT Internal Medicine; ATTEND Internal Medicine
DX: E86.0 Dehydration (principal); K57.30 Diverticulosis of large intestine without perforation or abscess without bleeding; E87.6 Hypokalemia; E87.2 Acidosis; I10 Essential (primary) hypertension; E11.9 Type 2 diabetes mellitus without complications; I49.5 Sick sinus syndrome; Z95.0 Presence of cardiac pacemaker; Z95.1 Presence of aortocoronary bypass graft; H91.91 Unspecified hearing loss, right ear; Z20.828 Contact with and (suspected) exposure to other viral communicable diseases
CPT/HCPCS: J1650; Q9967

== ENCOUNTER 2021-01-23 11:09 | Emergency (ER) | payer MEDICARE, OTHER ==
[~2021-01-23] VITALS: Ht 172.7 cm; Wt 77.0 kg
[~2021-01-23 11:09] MED LIST changes: +B-1100 MG PO
[2021-01-23 11:50] LABS: GFR > 60 ML/MIN (>=60 (CALC)); GFR FOR AFR.AMER. > 60 ML/MIN (>=60 (CALC))
[2021-01-23 11:51] LABS: HEMATOCRIT 39.8 % (39.0-50.0); HEMOGLOBIN 13.2 g/dl (14.0-18.0); IMMATURE GRANULOCYTES 0.3 % (0.0-5.0); MEAN CELL VOLUME 92.3 fL CALC (80.0-100.0); MEAN CORPUSCULAR HGB 30.6 pG CALC (26.0-32.0); MEAN CORPUSCULAR HGB CONC 33.2 g/dL CAL (32.0-36.0); NEUT# 6.17 thou/uL (1.82-7.42); RED BLOOD COUNT 4.31 mill/uL (4.70-6.10); RED CELL DISTRI WIDTH 13.4 % (11.5-15.5)
[2021-01-23 12:08] LABS: INTERNATIONAL NORMALIZED RATIO 1.2 RATIO (0.7-1.3); PROTHROMBIN TIME 12.1 SECONDS (9.0-12.5)
[2021-01-23 12:09] LABS: ALKALINE PHOSPHATASE 85 u/l (38-126); ANION GAP 14 (6-22 (CALC)); BUN 15 mg/dL (8-23); BUN/CREATININE RATIO 15 (12-20 (CALC)); CARBON DIOXIDE 26 mmol/l (22-30); CHLORIDE 103 mmol/l (95-108); GFR > 60 ML/MIN (>=60 (CALC)); GFR FOR AFR.AMER. > 60 ML/MIN (>=60 (CALC)); POTASSIUM 3.8 mmol/l (3.5-5.1); SGOT/AST 20 u/l (19-48); SODIUM 139 mmol/l (137-146)
[2021-01-23 12:10] LABS: ALBUMIN 4.1 g/dL (3.2-5.0); TOTAL PROTEIN 6.8 g/dL (6.3-8.2)
[2021-01-23 12:20] LABS: MYOGLOBIN 151 ng/mL (0 - 121)
[2021-01-23 14:20] VITALS: BP 147/67
== END 2021-01-23 14:20 | disposition short-term general hospital (02) ==
LOC: ED 11:09
PROVIDERS: Emergency Medicine
DX: R41.82 Altered mental status, unspecified (principal); R26.89 Other abnormalities of gait and mobility; R47.81 Slurred speech; I65.22 Occlusion and stenosis of left carotid artery; I10 Essential (primary) hypertension; E11.9 Type 2 diabetes mellitus without complications; F03.90 Unspecified dementia, unspecified severity, without behavioral disturbance, psychotic disturbance, mood disturbance, and anxiety; I49.5 Sick sinus syndrome; M19.90 Unspecified osteoarthritis, unspecified site; H91.91 Unspecified hearing loss, right ear; Z95.0 Presence of cardiac pacemaker; Z79.84 Long term (current) use of oral hypoglycemic drugs; Z20.822 Contact with and (suspected) exposure to COVID-19
CPT/HCPCS: Q9967

== ENCOUNTER 2021-11-20 09:17 | Emergency (ER) | payer MEDICARE ==
[~2021-11-20] VITALS: Ht 172.7 cm; Wt 80.0 kg
[2021-11-20 09:59] LABS: URINE BILIRUBIN - DIPSTICK NEGATIVE (NEGATIVE); URINE BLOOD DIPSTICK SMALL (NEGATIVE); URINE COLOR YELLOW; URINE GLUCOSE - DIPSTICK NEGATIVE (NEGATIVE); URINE KETONE NEGATIVE (NEGATIVE); URINE PH 5.5 (4.5-8.0); URINE PROTEIN - DIPSTICK TRACE mg/dL (NEG-TRACE); URINE SPECIFIC GRAVITY >=1.030; URINE UROBILINOGEN - DIPSTICK 0.2 E.U./dL (0.2)
[2021-11-20 10:02] LABS: URINE LEUK ESTERASE SMALL (NEGATIVE); URINE NITRITE - DIPSTICK POSITIVE (Negative)
[2021-11-20 10:05] LABS: URINE SQUAMOUS EPITHELIAL CELL FEW EPI/hpf (0-FEW)
[2021-11-20 10:06] LABS: URINE BACTERIA MODERATE hpf
[2021-11-20 10:17] LABS: HEMATOCRIT 44.9 % (39.0-50.0); HEMOGLOBIN 14.5 g/dl (14.0-18.0); IMMATURE GRANULOCYTES 0.2 % (0.0-5.0); MEAN CELL VOLUME 91.8 fL CALC (80.0-100.0); MEAN CORPUSCULAR HGB 29.7 pG CALC (26.0-32.0); MEAN CORPUSCULAR HGB CONC 32.3 g/dL CAL (32.0-36.0); NEUT# 2.4 thou/uL (1.82-7.42); RED BLOOD COUNT 4.89 mill/uL (4.70-6.10); RED CELL DISTRI WIDTH 14.6 % (11.5-15.5)
[2021-11-20 10:45] LABS: ALBUMIN 3.9 g/dL (3.2-5.0); ALKALINE PHOSPHATASE 79 u/l (38-126); BUN 16 mg/dL (8-23); BUN/CREATININE RATIO 16 (12-20 (CALC)); CARBON DIOXIDE 29 mmol/l (22-30); CHLORIDE 109 mmol/l (95-108); GFR > 60 ML/MIN (>=60 (CALC)); GFR FOR AFR.AMER. > 60 ML/MIN (>=60 (CALC)); SGOT/AST 22 u/l (19-48); SODIUM 143 mmol/l (137-146); TOTAL PROTEIN 7.3 g/dL (6.3-8.2)
[2021-11-20 10:47] LABS: ANION GAP 10 (6-22 (CALC)); BILIRUBIN, TOTAL 0.4 mg/dL (0.0-1.4)
[2021-11-20] MEDS ORDERED: METFORMIN500 M2 PO (11:06)
[2021-11-20] MEDS ORDERED: NORVASC5 M1 PO (11:06)
[2021-11-20] MEDS ORDERED: OMNI-PAC300 MG PO (11:06)
[2021-11-20 11:30] VITALS: BP 198/100
== END 2021-11-20 12:00 | disposition home or self-care (01) ==
LOC: ED 09:17
PROVIDERS: Family Medicine
DX: N39.0 Urinary tract infection, site not specified (principal); B96.1 Klebsiella pneumoniae [K. pneumoniae] as the cause of diseases classified elsewhere; I10 Essential (primary) hypertension; E11.9 Type 2 diabetes mellitus without complications; H91.91 Unspecified hearing loss, right ear; Z95.1 Presence of aortocoronary bypass graft; Z95.0 Presence of cardiac pacemaker; Z79.84 Long term (current) use of oral hypoglycemic drugs

== ENCOUNTER 2021-12-31 20:05 | Observation (INO) | payer MEDICARE ==
[~2021-12-31] VITALS: Ht 170.2 cm; Wt 78.0 kg
[~2021-12-31 20:05] MED LIST changes: +NORVASC5 M1 PO; +OMNI-PAC300 MG PO
--- NOTE | 2021-12-31 20:09 | NUR ---
BY EMS TO ROOM. ASA AND NTG GIVEN BY EMS ENROUTE.
[2021-12-31 20:31] VITALS: BP 145/87
[2021-12-31 20:43] LABS: HEMATOCRIT 42.4 % (39.0-50.0); HEMOGLOBIN 13.5 g/dl (14.0-18.0); IMMATURE GRANULOCYTES 0.1 % (0.0-5.0); MEAN CELL VOLUME 95.3 fL CALC (80.0-100.0); MEAN CORPUSCULAR HGB 30.3 pG CALC (26.0-32.0); MEAN CORPUSCULAR HGB CONC 31.8 g/dL CAL (32.0-36.0); NEUT# 4.52 thou/uL (1.82-7.42); RED BLOOD COUNT 4.45 mill/uL (4.70-6.10); RED CELL DISTRI WIDTH 15.6 % (11.5-15.5)
[2021-12-31 21:00] VITALS: BP 147/86
[2021-12-31 21:03] LABS: ACT PARTIAL THROMBO TIME 25.6 SECONDS (20.0-32.5); PROTHROMBIN TIME 10.9 SECONDS (9.0-12.5)
[2021-12-31 21:05] LABS: ALBUMIN 3.6 g/dL (3.2-5.0); ALKALINE PHOSPHATASE 80 u/l (38-126); AMYLASE 53 u/l (30-110); BUN 15 mg/dL (8-23); BUN/CREATININE RATIO 14 (12-20 (CALC)); CHLORIDE 106 mmol/l (95-108); CREATININE 1.1 mg/dL (0.7-1.3); ETHYL ALCOHOL 0 mg/dl (0-30); GFR > 60 ML/MIN (>=60 (CALC)); GFR FOR AFR.AMER. > 60 ML/MIN (>=60 (CALC)); LIPASE 79 u/l (23-300); POTASSIUM 4.2 mmol/l (3.5-5.1); SODIUM 139 mmol/l (137-146); TOTAL PROTEIN 6.9 g/dL (6.3-8.2)
[2021-12-31 21:06] LABS: ANION GAP 14 (6-22 (CALC)); BILIRUBIN, TOTAL 0.6 mg/dL (0.0-1.4); CARBON DIOXIDE 23 mmol/l (22-30); SGOT/AST 39 u/l (19-48)
[2021-12-31 22:00] VITALS: BP 140/70
[2021-12-31 22:00] LABS: URINE BILIRUBIN - DIPSTICK NEGATIVE (NEGATIVE); URINE BLOOD DIPSTICK TRACE-INTACT (NEGATIVE); URINE COLOR YELLOW; URINE GLUCOSE - DIPSTICK NEGATIVE (NEGATIVE); URINE KETONE 15 mg/dL (NEGATIVE); URINE LEUK ESTERASE NEGATIVE (NEGATIVE); URINE PH 5.5 (4.5-8.0); URINE PROTEIN - DIPSTICK NEGATIVE (NEG-TRACE); URINE SPECIFIC GRAVITY >=1.030; URINE UROBILINOGEN - DIPSTICK 0.2 E.U./dL (0.2)
[2021-12-31 22:01] LABS: URINE NITRITE - DIPSTICK NEGATIVE (Negative)
[2021-12-31 22:30] VITALS: BP 145/81
[2021-12-31 22:55] VITALS: BP 144/91
--- NOTE | 2021-12-31 22:55 | NUR ---
PT RECEIVED FROM ED TO ROOM 273. ARRIVES VIA WC ACCOMPANIED BY ED RN. PT AMBULATORY TO BED. GAIT UNSTEADY. PT DENIES PAIN AT THIS TIME. ORIENTED TO UNIT, ROOM, CALL JOHNSON, LIGHTS, TV. ICE WATER PROVIDED. CALL JOHNSON WITHIN REACH. AGREES TO CALL PRN.
--- NOTE | 2021-12-31 23:35 | NUR ---
PHYSICAL ASSESMENT COMPLETE. PT CURRENTLY DENIES PAIN OR DISCOMFORT. SCHEDULED MEDICATIONS AND PRN MEDICATION ADMINISTERED, SEE E-MAR. PT REQUESTS SOMETHING TO EAT AT THIS TIME. PLAN OF CARE REVIEWED, PT DENIES QUESTIONS, VERBALIZES UNDERSTANDING. ITEMS WITHIN REACH, BED LOCKED IN LOW POSITION W/ BEDRAILS UP X2. CALL JOHNSON WITHIN REACH, AGREES TO CALL PRN.
[2022-01-01] VITALS: BP 134/81
--- NOTE | 2022-01-01 03:51 | NUR ---
PT RESTING IN BED, NO SIGNS OF DISTRESS NOTED, RESP EVEN AND UNLABORED. PT VOICES NO NEEDS OR COMPLAINTS AT THIS TIME. CALL LIGHT IN REACH, CONTINUE TO MONITOR.
[2022-01-01 04:00] VITALS: BP 131/71
[2022-01-01 06:03] LABS: HEMATOCRIT 39.9 % (39.0-50.0); HEMOGLOBIN 12.8 g/dl (14.0-18.0); MEAN CELL VOLUME 93.7 fL CALC (80.0-100.0); MEAN CORPUSCULAR HGB CONC 32.1 g/dL CAL (32.0-36.0); NEUT# 3.01 thou/uL (1.82-7.42); RED BLOOD COUNT 4.26 mill/uL (4.70-6.10); RED CELL DISTRI WIDTH 15.7 % (11.5-15.5)
[2022-01-01 06:22] LABS: ALBUMIN 3.2 g/dL (3.2-5.0); ALKALINE PHOSPHATASE 73 u/l (38-126); ANION GAP 13 (6-22 (CALC)); BILIRUBIN, TOTAL 0.7 mg/dL (0.0-1.4); BUN 13 mg/dL (8-23); BUN/CREATININE RATIO 16 (12-20 (CALC)); CARBON DIOXIDE 22 mmol/l (22-30); CHLORIDE 108 mmol/l (95-108); CREATININE 0.9 mg/dL (0.7-1.3); GFR > 60 ML/MIN (>=60 (CALC)); GFR FOR AFR.AMER. > 60 ML/MIN (>=60 (CALC)); POTASSIUM 3.7 mmol/l (3.5-5.1); SGOT/AST 35 u/l (19-48); SODIUM 139 mmol/l (137-146)
--- NOTE | 2022-01-01 07:17 | NUR ---
SHIFT CHANGE REPORT, PT SLEEPING IN SUPINE POSITION, BREATHING EVEN AND NON-LABORED, IVF INFUSING, TELE MONITOR IN PLACE, CALL JOHNSON IN REACH AND BED LOCKED IN LOWEST POSITION.
[2022-01-01 07:52] VITALS: BP 146/83
--- NOTE | 2022-01-01 07:56 | NUR ---
PT IS AWAKE ALERT AND ORIENTED AT THIS TIME, SITTING UP FOR MEAL, STATES HE IS VERY TIRED FROM LAYING IN THE SAND MANY NIGHTS, HE IS DISHEVELED AND UNKEMPT, WILL HAVE SHOWER LATER.
[2022-01-01 10:52] VITALS: BP 131/75
[2022-01-01] MEDS ORDERED: CHLORDIAZEPOXID25 M1 PO (11:23)
[2022-01-01] MEDS ORDERED: FLUOXETINE HCL40 MG PO ×2 (11:24→11:58)
[2022-01-01] MEDS ORDERED: ONDANSETRON4 MG PO (11:25)
[2022-01-01] MEDS ORDERED: LOPRESSOR25 MG PO (11:56)
[2022-01-01] MEDS ORDERED: ATORVASTATIN CA80 MG PO (11:56)
[2022-01-01] MEDS ORDERED: TAMSULOSIN HCL0.4 MG PO (11:56)
[2022-01-01] MEDS ORDERED: CLOPIDOGREL75 MG PO (11:56)
[2022-01-01] MEDS ORDERED: NORVASC5 M1 PO (11:57)
[2022-01-01] MEDS ORDERED: LISINOPRIL20 M1 PO ×2 (11:57→11:58)
[2022-01-01] MEDS ORDERED: BUPROPION HCL150 M2 PO (11:58)
[2022-01-01] MEDS ORDERED: METFORMIN500 M2 PO (11:58)
[2022-01-01] MEDS ORDERED: FOLIC ACID1 MG PO (11:59)
--- NOTE | 2022-01-01 12:57 | NUR ---
SITTING UP IN RECLINER HAVING MEAL, NO NEW COMPLAINS, CM WORKING ON RESOURCES FOR SOCIAL AND MEDICAL MEEDS.
[2022-01-01 14:20] VITALS: BP 131/75
--- NOTE | 2022-01-01 15:50 | NUR ---
Discharge instructions given. Patient verbalizes understanding of same. Discharged in good condition via Ambulatory to *Other with *Other. All belongings sent with pt. PT REPORTED HIS CAR IS DISABLED AND PARKED AT [facility], HE IS ALSO HOMELESS AND IS GOING TO AMBULATE TO HIS CAR'S LOCATION.
== END 2022-01-01 15:50 | disposition home or self-care (01) ==
LOC: ED 20:05 → ED-I 22:00 → ED 22:23 → MS2 22:24
PROVIDERS: ADMIT Internal Medicine; ATTEND Internal Medicine
DX: R07.89 Other chest pain (principal); I10 Essential (primary) hypertension; E11.9 Type 2 diabetes mellitus without complications; I49.5 Sick sinus syndrome; H91.91 Unspecified hearing loss, right ear; T50.996A Underdosing of other drugs, medicaments and biological substances, initial encounter; Z91.120 Patient's intentional underdosing of medication regimen due to financial hardship; Z72.89 Other problems related to lifestyle; Z95.1 Presence of aortocoronary bypass graft; Z95.5 Presence of coronary angioplasty implant and graft; Z95.0 Presence of cardiac pacemaker; Z59.00 Homelessness unspecified; Z79.84 Long term (current) use of oral hypoglycemic drugs; Z20.822 Contact with and (suspected) exposure to COVID-19
CPT/HCPCS: Q9967

== ENCOUNTER 2022-04-09 16:52 | Emergency (ER) | payer MEDICARE ==
[~2022-04-09] VITALS: Ht 170.2 cm; Wt 73.0 kg
[2022-04-09] VITALS (16 sets, daily range): BP systolic 121–147; BP diastolic 62–91
[~2022-04-09 16:52] MED LIST changes: +CHLORDIAZEPOXID25 M1 PO; +FLUOXETINE HCL40 MG PO; +LISINOPRIL20 M1 PO
[2022-04-09 17:20] LABS: HEMATOCRIT 39.8 % (39.0-50.0); HEMOGLOBIN 12.8 g/dl (14.0-18.0); IMMATURE GRANULOCYTES 0.4 % (0.0-5.0); MEAN CELL VOLUME 91.5 fL CALC (80.0-100.0); MEAN CORPUSCULAR HGB 29.4 pG CALC (26.0-32.0); MEAN CORPUSCULAR HGB CONC 32.2 g/dL CAL (32.0-36.0); NEUT# 9.57 thou/uL (1.82-7.42); RED BLOOD COUNT 4.35 mill/uL (4.70-6.10)
[2022-04-09 17:36] LABS: ALBUMIN 3.5 g/dL (3.2-5.0); ANION GAP 15 (6-22 (CALC)); BUN 9 mg/dL (8-23); BUN/CREATININE RATIO 9 (12-20 (CALC)); CARBON DIOXIDE 25 mmol/l (22-30); CHLORIDE 99 mmol/l (95-108); ETHYL ALCOHOL 0 mg/dl (0-30); GFR > 60 ML/MIN (>=60 (CALC)); GFR FOR AFR.AMER. > 60 ML/MIN (>=60 (CALC)); POTASSIUM 3.6 mmol/l (3.5-5.1); SGOT/AST 31 u/l (19-48); SODIUM 136 mmol/l (137-146)
[2022-04-09 17:40] LABS: ALKALINE PHOSPHATASE 115 u/l (38-126); BILIRUBIN, TOTAL 1.1 mg/dL (0.0-1.4); CPK < 20 u/l (52-200); TOTAL PROTEIN 7.5 g/dL (6.3-8.2)
[2022-04-09] MEDS ORDERED: METFORMIN500 M2 PO (20:19)
[2022-04-09] MEDS ORDERED: LISINOPRIL20 M1 PO (20:19)
[2022-04-09] MEDS ORDERED: ATORVASTATIN CA80 MG PO (20:19)
[2022-04-09] MEDS ORDERED: CLOPIDOGREL75 MG PO (20:19)
[2022-04-09 20:44] LABS: URINE BLOOD DIPSTICK TRACE-LYSED (NEGATIVE); URINE COLOR YELLOW; URINE GLUCOSE - DIPSTICK NEGATIVE (NEGATIVE); URINE KETONE 15 mg/dL (NEGATIVE); URINE PROTEIN - DIPSTICK TRACE mg/dL (NEG-TRACE); URINE UROBILINOGEN - DIPSTICK >=8.0 E.U./dL (0.2)
[2022-04-09 20:45] LABS: URINE BILIRUBIN - DIPSTICK SMALL (NEGATIVE); URINE LEUK ESTERASE MODERATE (NEGATIVE); URINE NITRITE - DIPSTICK NEGATIVE (Negative)
[2022-04-09] MEDS ORDERED: KEFLEX500 MG PO (20:49)
[2022-04-09 20:53] LABS: URINE SQUAMOUS EPITHELIAL CELL FEW EPI/hpf (0-FEW)
== END 2022-04-09 21:00 | disposition home or self-care (01) ==
LOC: ED 16:52
PROVIDERS: Emergency Medicine; Family Medicine
DX: F03.91 Unspecified dementia, unspecified severity, with behavioral disturbance (principal); U07.1 COVID-19; N39.0 Urinary tract infection, site not specified; E86.0 Dehydration; I10 Essential (primary) hypertension; E11.9 Type 2 diabetes mellitus without complications; H91.91 Unspecified hearing loss, right ear; Z86.73 Personal history of transient ischemic attack (TIA), and cerebral infarction without residual deficits; Z95.1 Presence of aortocoronary bypass graft; Z95.0 Presence of cardiac pacemaker; Z79.84 Long term (current) use of oral hypoglycemic drugs; Z91.83 Wandering in diseases classified elsewhere

== ENCOUNTER 2024-06-13 08:32 | Inpatient (IN) | payer MEDICARE ==
[~2024-06-13] VITALS: Ht 170.2 cm; Wt 77.1 kg
[2024-06-13] VITALS (36 sets, daily range): BP systolic 151–217; BP diastolic 81–123
[~2024-06-13 08:32] MED LIST changes: +ELIQUIS5 MG PO; +FOLIC ACID1 M1 PO; +OMNICEF300 MG PO; +VITAMIN B-1100 M1 PO
--- NOTE | 2024-06-13 08:32 | NUR ---
PT TO ROOM VIA EMS STRETCHER
[2024-06-13] MEDS ORDERED: LABETALOL HCL 100 MG/20 ML VIAL IV ONE (08:55)
[2024-06-13 09:18] LABS: BASO% 0.2 % (0-3); EOS% 0.1 % (0-8); HEMATOCRIT 44.6 % (39.0-50.0); HEMOGLOBIN 15.3 g/dl (14.0-18.0); IMMATURE GRANULOCYTES 0.2 % (0.0-5.0); MEAN CELL VOLUME 88.5 fL CALC (80.0-100.0); MEAN CORPUSCULAR HGB 30.4 pG CALC (26.0-32.0); MEAN CORPUSCULAR HGB CONC 34.3 g/dL CAL (32.0-36.0); MONO% 5.7 % (2-13); NEUT# 12.28 thou/uL (1.82-7.42); NEUT% 85.8 % (42-76); RED BLOOD COUNT 5.04 mill/uL (4.70-6.10); RED CELL DISTRI WIDTH 13.3 % (11.5-15.5)
[2024-06-13 09:26] LABS: BILIRUBIN, TOTAL 1.1 mg/dL (0.2-1.3); CREATININE 1.2 mg/dL (0.7-1.3); MAGNESIUM 1.9 mg/dL (1.6-2.3); POTASSIUM 3.6 mmol/l (3.5-5.1)
--- NOTE | 2024-06-13 09:33 | NUR ---
THIS NURSE ATTEMPT STRAIGHT CATH ON PATINT. CATH UNSUCCESSFUL. PT PLACED ON MATH EXTERNAL CATHETER TO COLLECT URINE.
[2024-06-13 09:45] LABS: ALBUMIN 4.3 g/dL (3.2-5.0); TOTAL PROTEIN 7.7 g/dL (6.3-8.2)
[2024-06-13] MEDS ORDERED: hydrALAZINE HCL 20 MG/ML VIAL(1 ML) IV ONE (09:45)
[2024-06-13 09:55] LABS: TSH, 3RD GENERATION 0.23 uIU/mL (0.47 - 4.68)
[2024-06-13 10:08] LABS: INTERNATIONAL NORMALIZED RATIO 1.2 RATIO (0.7-1.3)
[2024-06-13 10:11] LABS: PROTHROMBIN TIME 10.9 SECONDS (9.0-12.5)
--- NOTE | 2024-06-13 10:33 | NUR ---
PT RESTING IN BED. PTS IA LETERED MENTAL STATUS AND UNABLE TO COMPRHEND THE QUESTIONS I AM ANSWERING. MALE PURE WICK IN PLACE.
--- NOTE | 2024-06-13 11:18 | NUR ---
PT RESTING IN BED, EYES CLOSED. NO DISTRESS NOTED.
[2024-06-13 12:14] LABS: URINE BILIRUBIN - DIPSTICK Negative (NEGATIVE); URINE BLOOD DIPSTICK Trace-lysed (NEGATIVE); URINE GLUCOSE - DIPSTICK 100 mg/dL (NEGATIVE); URINE KETONE Trace mg/dL (NEGATIVE); URINE NITRITE - DIPSTICK Negative (Negative); URINE PH 5.5 (4.5-8.0); URINE PROTEIN - DIPSTICK 100 mg/dL (NEG-TRACE); URINE SPECIFIC GRAVITY 1.015; URINE UROBILINOGEN - DIPSTICK 0.2 E.U./dL (0.2)
[2024-06-13 12:16] LABS: URINE COLOR Yellow; URINE LEUK ESTERASE Large (NEGATIVE)
[2024-06-13 12:17] LABS: URINE BACTERIA MODERATE hpf; URINE RBC 0-2 RBC/hpf (0-5); URINE WBC 20-50 WBC/hpf (0-5)
--- NOTE | 2024-06-13 12:22 | NUR ---
PT RESTING IN BED. VSS. NO DISTRESS NOTED. PT DENIES ANY CURRENT NEEDS.
[2024-06-13] MEDS ORDERED: cefTRIAXone SODIUM 2 GM in SODIUM CHLORIDE 0.9% 100 ML IV ONE (12:40)
[2024-06-13] MEDS ORDERED: AZITHROMYCIN 500 MG in SODIUM CHLORIDE 0.9% 250 ML IV ONE (12:40)
[2024-06-13] MEDS ORDERED: SODIUM CHLORIDE 0.9% 1,000 ML IV ONE (12:55)
[2024-06-13] MEDS ORDERED: MAGNESIUM HYDROXIDE 30 ML UDC PO PRN (13:10)
[2024-06-13] MEDS ORDERED: ACETAMINOPHEN 325 MG/TAB PO PRN (13:10)
[2024-06-13] MEDS ORDERED: SODIUM CHLORIDE 0.9% 1,000 ML IV PRN (13:10)
[2024-06-13] MEDS ORDERED: hydrALAZINE HCL 20 MG/ML VIAL(1 ML) IV PRN (13:15)
--- NOTE | 2024-06-13 13:45 | NUR ---
PT IS RESTING IN BED, EYS CLOSED. BP ELEVATED. THIS NURSE NOTIFIED MD AND ASK FOR FURTHER MEDIACTION.
[2024-06-13] MEDS ORDERED: LISINOPRIL 20 MG/TAB PO SCH (14:00)
[2024-06-13] MEDS ORDERED: OMNICEF300 MG PO (14:10)
[2024-06-13] MEDS ORDERED: THIAMINE HYDRO100 MG PO (14:10)
--- NOTE | 2024-06-13 15:02 | NUR ---
THIS NURSE ROUNDED WITH DIRECTOR INTERNAL CONTROL WARREN. PT RESTING IN BED, EYES CLOSED. PT CONTINUED TO BE ALTERED MENTAL STATUS AND ANSWERS IN MINIMAL WORDS.
[2024-06-13] MEDS ORDERED: amLODIPine BESYLATE 5 MG/TAB PO SCH (16:00)
--- NOTE | 2024-06-13 16:06 | NUR ---
REPORT CALLED AND GIVEN TO LUCIA CAMPOS ON [employer].
--- NOTE | 2024-06-13 16:20 | NUR ---
PT ARRIVED TO THE UNIT VIA STRETCHER, PT TRANSFERRED FROM THE STRETCHER TO THE BED, PT AROUSES EASILY, PT DOES NOT RESPONDED TO QUESTIONS, PT IS EXTREMLY HARD OF HEARING, PUPILS PERRL, ABD DISTENDED AND SOFT WITH ACTIVE BOWEL SOUNDS, DIMINISHED LUNG SOUNDS, STRONG RADIAL PULSES, WEAK PEDAL PULSES, PT ORIENTED TO THE ROOM AND CALL LIGHT SYSTEM, WILL NEED REORIENTING, CALL JOHNSON WITHIN REACH
[2024-06-13] MEDS ORDERED: LORazepam 2 MG/ML IV PRN (16:25)
[2024-06-13] MEDS ORDERED: chlordiazePOXIDE HCL 25 MG CAP PO PRN (16:25)
[2024-06-13] MEDS ORDERED: LORazepam 2 MG/ML IM PRN (16:25)
[2024-06-13] MEDS ORDERED: INSULIN LISPRO 100 UNITS/ML ML SC SCH (17:00)
[2024-06-13] MEDS ORDERED: MULTIPLE VITAMIN 10 ML,THIAMINE HCL 100 MG in DEXTROSE 5% / 0.9% NACL 1,000 ML IV SCH (17:00)
--- NOTE | 2024-06-13 19:04 | NUR ---
Nurse was notified about patient high blood pressure. Left arm-161/97. Right arm-188/107.
--- NOTE | 2024-06-13 20:00 | NUR ---
IN BED AWAKE, CONFUSED. BED ALARM IN PLACE. NO S/S OF DETOXING AT CURRENT TIME.
[2024-06-13] MEDS ORDERED: ENOXAPARIN SODIUM 40 MG/0.4 ML SYR SC SCH (21:00)
[2024-06-14] VITALS (8 sets, daily range): BP systolic 154–198; BP diastolic 88–116
--- NOTE | 2024-06-14 | NUR ---
RESTING IN BED AWAKE, CONFUSED. RESTING IN BED. NO CO NOTED
--- NOTE | 2024-06-14 03:52 | NUR ---
Nurse notified about patient high blood pressure 191/107. Was checked twice and this was the best one.
--- NOTE | 2024-06-14 04:00 | NUR ---
RESTING IN BED. AWAKE ALERT. NO C/O NOTED.
[2024-06-14 04:35] LABS: BASO% 0.3 % (0-3); EOS% 0.3 % (0-8); HEMATOCRIT 39.8 % (39.0-50.0); IMMATURE GRANULOCYTES 0.1 % (0.0-5.0); LYMPH% 10.9 % (15-41); MEAN CELL VOLUME 90.5 fL CALC (80.0-100.0); MEAN CORPUSCULAR HGB 29.8 pG CALC (26.0-32.0); MEAN CORPUSCULAR HGB CONC 32.9 g/dL CAL (32.0-36.0); MONO% 5.6 % (2-13); NEUT# 11.28 thou/uL (1.82-7.42); NEUT% 82.8 % (42-76); RED BLOOD COUNT 4.4 mill/uL (4.70-6.10); RED CELL DISTRI WIDTH 13.9 % (11.5-15.5)
[2024-06-14 04:36] LABS: HEMOGLOBIN 13.1 g/dl (14.0-18.0)
[2024-06-14 04:53] LABS: ALBUMIN 3.5 g/dL (3.2-5.0); BILIRUBIN, TOTAL 1.3 mg/dL (0.2-1.3); CREATININE 0.9 mg/dL (0.7-1.3); MAGNESIUM 1.8 mg/dL (1.6-2.3); POTASSIUM 3.4 mmol/l (3.5-5.1); TOTAL PROTEIN 6.6 g/dL (6.3-8.2)
--- NOTE | 2024-06-14 07:24 | NUR ---
BEDSIDE REPORT RECEIVED FROM OFF GOING NURSE. PATIENT NOTED TO HAVE ELEVATED BP THIS AM. TREATED FRO BP PER MD ORDER. PATIENT ALSO NOTED TO HAVE MILD TREMORS AND CONFUSED. ALERT TO SELF. REMINDED TO NOT PULL AT IV WHICH IS CURRENTLY WRAPPED IN [place]. DENIES PAIN OR DISCOMFORT. IV FLUIDS IN PLACE. SAFETY MEASURES IN PLACE. RESPIRATIONS EVEN AND UNLABORED ON ROOM AIR. NEEDS ANTICIPATED.
[2024-06-14] MEDS ORDERED: POTASSIUM CHLORIDE 20 MEQ/TAB PO SCH (09:00)
[2024-06-14] MEDS ORDERED: METOPROLOL SUCCINATE 50 MG/TAB PO SCH (10:00)
--- NOTE | 2024-06-14 10:04 | NUR ---
CONTACTED DR WALLACE'S OFFICE IN REFERENCE TO A CARDIOLOGY CONSULT. I SPOKE MILENA ALMONTE/JEROME AT 1004 HRS.
--- NOTE | 2024-06-14 11:02 | NUR ---
PATIENT RESTIGN INBVED AT THIS TIME WITH EYES CLOSED. RECEIVED COMPLETE BED BATH AND LINEN CHANGE THIS AM. RESPIRATIONS EVENA ND UNLABORED ON ROOM AIR. NO SIGNS OF DISTRESS NOTED. IV FLUIDS CONTINUE. SAFETY MEASURES IN PLACE.
--- NOTE | 2024-06-14 13:29 | NUR ---
PATIENT AWAKE IN BED AT THIS ITME. ASSISTED WITH LUNCH R/T COGNITIVE IMPAIRMENT. NO SIGNS OF DISTRESS NOTED. IV FLUIDS CONTINUE. PUREWICK IN PLACE DRAINING CLEAR GINA URINE. NEEDS ANTICIPATED.
[2024-06-14] MEDS ORDERED: AZITHROMYCIN 500 MG in SODIUM CHLORIDE 0.9% 250 ML IV SCH (13:30)
--- NOTE | 2024-06-14 16:34 | NUR ---
PATIENT AWAKE IN BED AT THIS TIME. NO SIGNS OF DISTRESS NOTED. RESPIRATIONS EVEN AND UNLABORED ON ROOM AIR. IV FLUIDS CONTINUE. SAFETY MEASURES IN PLACE.
--- NOTE | 2024-06-14 18:22 | NUR ---
PATIENT SITTING UP AWAKE IN BED. NO SIGNS OF DISTRESS NOTED. IV FLUIDS CONTINUE. SAFETY MEASURES IN PLACE. CALL LIGHT WITHIN REACH.
--- NOTE | 2024-06-14 20:00 | NUR ---
PATIENT RESTING IN BED, WATCHING TV, PATIENT ALERT ONLY TO SELF, PATIENT IV ON LEFT HAND G 20 ONGOING NS @ 100CC/HR INFUSING WELL, PATIENT DENIES PAIN PATINET ON TELEMETRY , ACTIVE BOWEL SOUNDS, PATIENT ON PUREWICK DRAINING GINA COLORED URINE, PATIENT CIWA 4, BED ALARM INPLACED.
[2024-06-14] MEDS ORDERED: LISINOPRIL 20 MG/TAB PO SCH (21:00)
[2024-06-15] VITALS (12 sets, daily range): BP systolic 146–190; BP diastolic 79–110
--- NOTE | 2024-06-15 | NUR ---
MILA SANTOS SCORE 14, PATIENT RESTLESS, DUE LIUBRIUM GIVEN.
--- NOTE | 2024-06-15 02:00 | NUR ---
CALLED SAFETY ENGINEER PRESSURE VESSELS DR ISBELL BP 190/102 HR 108, NEW ORDER LABETALOL 10MG IV, ORDER FAX TO PHARMACY.
[2024-06-15] MEDS ORDERED: LABETALOL HCL 20 MG/ 4 ML CARTRG IV PRN (02:25)
--- NOTE | 2024-06-15 03:39 | NUR ---
BP 182/96 AND HR 100, DUE HYDRALAZINE GIVEN.
[2024-06-15 05:11] LABS: BASO% 0.2 % (0-3); EOS% 0.3 % (0-8); HEMOGLOBIN 13.8 g/dl (14.0-18.0); IMMATURE GRANULOCYTES 0.4 % (0.0-5.0); LYMPH% 9.8 % (15-41); MEAN CELL VOLUME 89.3 fL CALC (80.0-100.0); MEAN CORPUSCULAR HGB 30.8 pG CALC (26.0-32.0); MEAN CORPUSCULAR HGB CONC 34.5 g/dL CAL (32.0-36.0); MONO% 5.6 % (2-13); NEUT# 13.81 thou/uL (1.82-7.42); NEUT% 83.7 % (42-76); RED BLOOD COUNT 4.48 mill/uL (4.70-6.10); RED CELL DISTRI WIDTH 14.1 % (11.5-15.5)
[2024-06-15 05:31] LABS: ALBUMIN 3.6 g/dL (3.2-5.0); BILIRUBIN, TOTAL 1.2 mg/dL (0.2-1.3); CREATININE 0.8 mg/dL (0.7-1.3); MAGNESIUM 1.7 mg/dL (1.6-2.3); POTASSIUM 3.8 mmol/l (3.5-5.1); TOTAL PROTEIN 6.9 g/dL (6.3-8.2)
--- NOTE | 2024-06-15 05:33 | NUR ---
PATIENT DROWSI BLOOD SUGAR CHECKED 175
--- NOTE | 2024-06-15 08:00 | NUR ---
UNABLE TO ASSESS CIWA SCORE HE IS SLEEPING AND NOT ABLE TO AROUSE ENOUGH FOR ASSESSMENT.
--- NOTE | 2024-06-15 08:21 | NUR ---
SHIFT CHANGE REPORT, PT SLEEPING SOUNDLY, NO SIGN DISCOMFORT AT THIS TIME, IVF INFUSING, TELE MONITOR IN PLACE, CALL JOHNSON IN REACH AND BED LOCKED IN LOWEST POSITION WITH ALARM ACTIVATED.
[2024-06-15] MEDS ORDERED: CEFEPIME HYDROCHLORIDE 2 GM in SODIUM CHLORIDE 0.9% 100 ML IV SCH (09:00)
[2024-06-15] MEDS ORDERED: MAGNESIUM OXIDE 400 MG/TAB PO SCH (09:00)
[2024-06-15] MEDS ORDERED: Levofloxacin 750 mg Premix 150 ML IV SCH (10:00)
--- NOTE | 2024-06-15 10:26 | NUR ---
PRELIMINARY BLOOD CULTURE SHOWS GRAM POSITIVE COCCI IN 1/[address] BLOUNT AWARE. VANCOMYCIN IV WAS ADDED WHILE AWAITING FINAL RESULTS. PHARMACY WILL FOLLOW.
[2024-06-15] MEDS ORDERED: VANCOMYCIN HCL 750 MG in SODIUM CHLORIDE 0.9% 235 ML IV SCH (12:00)
--- NOTE | 2024-06-15 12:00 | NUR ---
MORE AWAKE AND ALERT AT 1200, NO C/O DISCOMFORT, ASSISTING WITH MEAL.
--- NOTE | 2024-06-15 12:32 | NUR ---
PT MORE AWAKE AND AWAKE AT THIS TIME BUT BARELY RESPONDS TO VERBAL STIMULI, MATHEMATICS INSTRUCTOR JUST REPORTED HE HAD A MOUTHFUL OF FOOD POCKETTED IN HIS MOUTH. HE IS ORIENTED TO SELF, AND PLACE AT THIS TIME. HE KNOWS HE IS IN A HOSPITAL BUT DOES NOT KNOW THE NAME, HE IS DISORIENTED TO TIME, HE IS OR APPEARS TO BE SEVERELY HEARING IMPAIRED, WILL CONTINUE TO MONITOR.
--- NOTE | 2024-06-15 12:48 | NUR ---
S: JER TOSCANO is a 74 M who presents with Pneumonia and UTI. He has a history of DIABETES MELLITUS, HTN, ETOH ABUSE, CAD, CABG, DEMENTIA, RT EAR DEAFNESS, HOMELESSNESS, AFIB. All medications in patient's chart were reviewed. O: VS: BP 146/85mmHg, P 93bpm, RR 18breaths/min,T 97.7F W 77.1kg, HT 170.18cm, Scr= 0.8 mg/dL, CrCl= 69.6 ml/min A: Blood culture is pending. Urine culture is shown, which is sensitive to Enterobacter Cloacae. P: Patient is on Levaquin 750mg IV Q12H, Vancomycin 750mg IV Q12H. Vancomycin ordered for pharmacy to dose. Start Vancomycin 750mg IV Q12H. Vancomycin trough is drawn before the dose on 06/16/2024 at 23:30 Vancomycin goal trough is between 15-20 mcg/ml. Pharmacy will follow and or advise on antibiotics use as needed.
--- NOTE | 2024-06-15 17:12 | NUR ---
TREMORING AT THIS TIME,WILL ADDRESS CONDITIOIN
--- NOTE | 2024-06-15 20:00 | NUR ---
RECIEVED IN BED QUIETLY IN STABLE CONDITION. APPEARED SLEEPING, BUT EASILY AROUSED WHEN SPOKEN TO. DIFFICULTY SPEAKING/UNINTELLIGLIBLE. NO DISCOMFORT AND DISTRESS NOTED. UNABLE TO PARTICIPATE IN CIWA PROTOCOL. NO N/V OR RESTLESSNESS AT THIS TIME. IV TO LEFT HAND WITH MULTIPLE VITAMIN INFUSING AT 100 ML/HR. TELEMETRY #4, FALL RISK, BED ALARM ON. VITAL SIGNS ARE STABLE. CALL LIGHT WITHIN REACH. WILL CONTINUE TO MONITOR.
[2024-06-16] VITALS (10 sets, daily range): BP systolic 154–184; BP diastolic 45–103
--- NOTE | 2024-06-16 | NUR ---
PT IN BED. AWAKE/RESTLESS AT TIMES. UNABLE TO SLEEP. SLIGHT AGITATION. MUMBLES AT TIMES. UNABLE TO COMPREHEND. BP 182/103, P 90. ADMINISTERED HYDRALAZINE 10MG IV PRN. LIBRIUM 25MG PO PRN GIVEN FOR AGITATION. SAFETY MEASURES IN PLACE. WILL CONTINUE TO MONITOR.
--- NOTE | 2024-06-16 02:50 | NUR ---
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 CHECKED PT AND PT AWAKE. VITAL SIGNS BP 154/92, HR 122. ON TELEMETRY HR UP IN 130S, AND DOWN TO 110S. LOWEST 116 NOTED.
--- NOTE | 2024-06-16 04:10 | NUR ---
PT HR WENT IN 150S, ATIVAN 0.5ML IV PRN ADMINISTERED FOR CIWA SCORE OF 13 IF LIBRIUM 25MG PO PRN IS NOT EFFECTIVE. PT WAS UNABLE TO SLEEP, RESTLESS, HAD CXR ORDERED. AROUNG 5AM, PT WENT DOWN FOR CXR, MSW WAS UNABLE TO COMPLETE DUE TO PT WAS UNABLE TO HOLD ARMS TO GET 2 VIEWS AND REQUESTED FOR THE DOCTOR TO CHANGE ORDER TO I VIEW. HAMMER RUNNER WAS NOTIFIED. AND WILL PASS ON TO DAY SHIFT NURSE TO OBTAIN NEW ORDERS.
[2024-06-16 04:50] LABS: BASO% 0.3 % (0-3); EOS% 3.2 % (0-8); HEMATOCRIT 42.9 % (39.0-50.0); HEMOGLOBIN 14.4 g/dl (14.0-18.0); IMMATURE GRANULOCYTES 0.2 % (0.0-5.0); MEAN CELL VOLUME 90.7 fL CALC (80.0-100.0); MEAN CORPUSCULAR HGB 30.4 pG CALC (26.0-32.0); MEAN CORPUSCULAR HGB CONC 33.6 g/dL CAL (32.0-36.0); MONO% 6.3 % (2-13); NEUT# 7.72 thou/uL (1.82-7.42); RED BLOOD COUNT 4.73 mill/uL (4.70-6.10); RED CELL DISTRI WIDTH 13.9 % (11.5-15.5)
[2024-06-16 05:17] LABS: ALBUMIN 3.4 g/dL (3.2-5.0); BILIRUBIN, TOTAL 1.2 mg/dL (0.2-1.3); CREATININE 0.8 mg/dL (0.7-1.3); MAGNESIUM 1.9 mg/dL (1.6-2.3); POTASSIUM 3.5 mmol/l (3.5-5.1); TOTAL PROTEIN 6.6 g/dL (6.3-8.2)
--- NOTE | 2024-06-16 06:00 | NUR ---
PT RESTING IN BED, APPEARED ASLEEP. SAFETY MEASURES IN PLACE
--- NOTE | 2024-06-16 08:00 | NUR ---
SHIFT CHANGE REPORT, PT SLEEPING, VERY LETHARGIC AND IS DIFFICULT TO AWAKEN OR DOES NOT STAY AWAKE FOR MORE THAN FEW MINS. IV SITE SWOLEN AND RED, CATHETER REMOVED, DIFFICULTY PLACUNG ANOTHER CATHERER, HOUSING MANAGEMENT OFFICER FINALLY ASSISTED AND SUCCESSFULLY PLACED CATHETER; ALL IV MEDS LATE DUE TO THIS CONDITION.
[2024-06-16] MEDS ORDERED: amLODIPine BESYLATE 5 MG/TAB PO SCH (09:00)
--- NOTE | 2024-06-16 10:28 | NUR ---
BOOKED AN INFECTIOUS DISEASE CONSULT WITH DR TAPIA VIA THE [facility] AT 1028 HRS.
--- NOTE | 2024-06-16 12:00 | NUR ---
STILL LETHARGIC BUT WILL OPEN EYES TO STRONG TACTILE AND SPEAKING MODERATELY INTO LEFT EAR. HE DOES COMPLAIN OF RIGHT SIDE PAIN WHEN REPOSITIONING.
--- NOTE | 2024-06-16 16:00 | NUR ---
CONSULT WITH INFECTIOUS DISEASE MD COMPLETED, PT UNAVLE TO PARTICIPATE SUFFICIENTLY, RESPONSES WERE MINIMAL.
--- NOTE | 2024-06-16 20:00 | NUR ---
PT RESTING NO DISTRESS NOTED ON ASSESSMENT. PT HARD OF HEARING ALERT AND ORIENTED TO SELF AND PLACE ONLY. CURRENT IV IN HIS AC KEEPS GOING OFF DUE TO HIM BENDING HIS ARM. NEW IV PLACED IN LFA 22G. BP SLIGHTLY ELEVATED WILL MONITOR AND GIVE PRN IV MEDICATION IF NEEDED. CURRENTLY REPORTS NO PAIN. LUNGS CLEAR ON RA. CALL LIGHT WITHIN REACH. BED ALARM ON. PLAN OF CARE ONGOING.
[2024-06-17] VITALS (8 sets, daily range): BP systolic 144–170; BP diastolic 83–98
--- NOTE | 2024-06-17 | NUR ---
PT RESTING NO DISTRESS NOTED ON EXAM. IV LABETALOL GIVEN FOR ELEVATED BP. CALL LIGHT WITHIN REACH. BED ALARM ON. PLAN OF CARE ONGOING.
[2024-06-17 05:13] LABS: BASO% 0.2 % (0-3); EOS% 5.2 % (0-8); HEMATOCRIT 39.4 % (39.0-50.0); HEMOGLOBIN 13.4 g/dl (14.0-18.0); IMMATURE GRANULOCYTES 0.2 % (0.0-5.0); LYMPH% 17.9 % (15-41); MEAN CELL VOLUME 91.4 fL CALC (80.0-100.0); MEAN CORPUSCULAR HGB 31.1 pG CALC (26.0-32.0); MONO% 6.7 % (2-13); NEUT# 5.86 thou/uL (1.82-7.42); NEUT% 69.8 % (42-76); RED BLOOD COUNT 4.31 mill/uL (4.70-6.10); RED CELL DISTRI WIDTH 13.8 % (11.5-15.5)
[2024-06-17 05:40] LABS: ALBUMIN 3.1 g/dL (3.2-5.0); BILIRUBIN, TOTAL 0.8 mg/dL (0.2-1.3); CREATININE 0.8 mg/dL (0.7-1.3); MAGNESIUM 1.9 mg/dL (1.6-2.3); POTASSIUM 3.2 mmol/l (3.5-5.1); TOTAL PROTEIN 6.2 g/dL (6.3-8.2)
--- NOTE | 2024-06-17 06:40 | NUR ---
PT RESTING NO DISTRESS NOTED ON EXAM. BED ALARM ON. CALL LIGHT WITHIN REACH. PLAN OF CARE ONGOING. IV WORKING PROPERLY INFUSION ONGOING.
[2024-06-17] MEDS ORDERED: POTASSIUM CHLORIDE 20 MEQ/PKT POWDER PO SCH (08:30)
--- NOTE | 2024-06-17 10:19 | NUR ---
S: JER TOSCANO is a 74 M who presents with UTI, BACTEREMIA, NAD RIGHT LOWER LOBE PNEUMONIA. All medications in patient's chart were reviewed. O: VS: BP 168/97, P 94, RR 20,T 97.3 W 77kg, HT 67in, Scr= 0.8,CrCl= 63ml/min TRIOUGH--9 A: Blood culture is pending Urine culture is pending P: Patient is on LEVOFLOXACIN 750MG IV Q24H AND VANCOMYCIN 750MG IV Q12H. Vancomycin ordered for pharmacy to dose. INCREASE TO Vancomycin 1GM IV Q12H. Vancomycin trough is drawn before the 4th dose on 06/18/24 @2330 Vancomycin goal trough is between 15-20 mcg/ml. Pharmacy will follow and or advise on antibiotics use as needed.
[2024-06-17] MEDS ORDERED: hydrALAZINE HCL 10 MG TAB PO SCH (11:00)
--- NOTE | 2024-06-17 11:21 | NUR ---
PATIENT RESTING IN BED, BED LOCKED AND LOW, CALL LIGHT WITHIN REACH. NO DISTRESS REPORTED OR OBSERVED. PLAN OF CARE REVIEWED WITH PATIENT, QUESTIONS ENCOURAGED AND ANSWERED TO BEST ABILITY WITHIN SCOPE OF PRACTICE. NO FURTHER QUESTIONS AT THIS TIME. PATIENT ENCOURAGED TO REACH OUT TO STAFF IF ANY NEEDS ARISE. WILL CONTINUE TO MONITOR.
[2024-06-17] MEDS ORDERED: MULTIPLE VITAMIN 10 ML,THIAMINE HCL 100 MG in DEXTROSE 5% / 0.9% NACL 1,000 ML IV SCH (12:00)
[2024-06-17] MEDS ORDERED: VANCOMYCIN HCL 1 GM in SODIUM CHLORIDE 0.9% 250 ML IV SCH (12:00)
[2024-06-17] MEDS ORDERED: TRIAMCINOLONE 0.1% TOP SCH (13:00)
--- NOTE | 2024-06-17 20:00 | NUR ---
PT RESTING NO DISTRESS NOTED ON EXAM. PT SAXMAN BUT IS AWAKE AND ALERT NO PAIN REPORTED AT THIS TIME. IV SITE FLUSHED WORKING PROPERLY IV FLUIDS ONGOING. CREAM APPLIED ON HIS BACK RASH. ORAL FLUIDS PROVIDED. CALL LIGHT WITHIN REACH. PLAN OF CARE ONGOING.
[2024-06-18] VITALS (8 sets, daily range): BP systolic 140–181; BP diastolic 77–100
--- NOTE | 2024-06-18 | NUR ---
PT RESTING NO DISTRESS NOTED ON EXAM. ORAL FLUIDS GIVEN. NEW IV PLACED ON LFA 20G SINCE CURRENT ONE KEEPS GETTING KINKS IN IT. CALL LIGHT WITHIN REACH. PLAN OF CARE ONGOING.
--- NOTE | 2024-06-18 04:24 | NUR ---
PT RESTING NO DISTRESS NOTED ON EXAM. NO PAIN REPORTED. CALL LIGHT WITHIN REACH. PLAN OF CARE ONGOING.
[2024-06-18 06:04] LABS: BASO% 0.4 % (0-3); EOS% 5.2 % (0-8); HEMATOCRIT 42.4 % (39.0-50.0); HEMOGLOBIN 14.2 g/dl (14.0-18.0); IMMATURE GRANULOCYTES 0.2 % (0.0-5.0); LYMPH% 17.5 % (15-41); MEAN CORPUSCULAR HGB 30.1 pG CALC (26.0-32.0); MEAN CORPUSCULAR HGB CONC 33.5 g/dL CAL (32.0-36.0); MONO% 6.4 % (2-13); NEUT# 6.36 thou/uL (1.82-7.42); NEUT% 70.3 % (42-76); RED BLOOD COUNT 4.71 mill/uL (4.70-6.10); RED CELL DISTRI WIDTH 13.7 % (11.5-15.5)
[2024-06-18 06:37] LABS: ALBUMIN 3.2 g/dL (3.2-5.0); BILIRUBIN, TOTAL 0.8 mg/dL (0.2-1.3); CREATININE 0.8 mg/dL (0.7-1.3); POTASSIUM 3.5 mmol/l (3.5-5.1); TOTAL PROTEIN 6.4 g/dL (6.3-8.2)
--- NOTE | 2024-06-18 08:00 | NUR ---
RECEIVED REPORT FROM NIGHTSHIFT NURSE ANNIE NUÑEZ. PT NOTED SITTING UP IN BED FOWLERS, EATING BREAKFAST. PT IS EXTREMELY HEARD OF HEARING, SPEAKING INTO LT EAR MORE AUDIBLE FOR HIM . PT IS A/OX2 TO SELF AND PLACE, PT ON RM AIR. PT DENIES ANY PAIN AT THIS TIME. BUILDING STONECUTTER ASSISTED CHIROPRACTIC ASSISTANT WITH PT BED BATH AND CHANGE, RED RASH AND IRRITATION NOTED TO PT BACK AND BUTTOCKS, CREAM APPLIED PER EMAR. PT HAS MINOR REDNESS NOTED TO ROBBIE AREA IN FOLDS. BABY POWEDER APPLIED TO KEEP CLEAN AND DRY. MALE PUREICK APPLIED. ASSESSMENT COMPELTED (SEE NURSING INTERVENTION) AND IV SITE APPEARS HEALTHY AND INTACT WITH FLUIDS RUNNING PER EMAR. EDUCATED PT ON PLAN OF CARE AND MED SCHEDULE FOR TODAY. CALL LIGHT WITHIN REACH AND SAFETY PRECAUTIONS IN PLACE.
[2024-06-18] MEDS ORDERED: THIAMINE HCL 100 MG TAB PO SCH (09:00)
[2024-06-18] MEDS ORDERED: MULTIPLE VITAMIN TABLET PO SCH (09:00)
[2024-06-18] MEDS ORDERED: FOLIC ACID 1 MG/TAB PO SCH (09:00)
--- NOTE | 2024-06-18 10:00 | NUR ---
patient up in recliner with two person assist.
[2024-06-18] MEDS ORDERED: BISACODYL 10 MG SUPP PR SCH (10:30)
[2024-06-18] MEDS ORDERED: hydrALAZINE HCL 25 MG/TAB PO SCH (10:30)
--- NOTE | 2024-06-18 10:40 | NUR ---
BILINGUAL MEDICAL ASSISTANT ASSISTED PAINT SUPERVISOR WITH GETTING PT UP INTO CHAIR. PT X2 ASSIST TO STAND AND PIVOT TO CHAIR, TOLERATED WELL. PT DENIES ANY PAIN AT THIS TIME. NO S/S OF DISTRESS. CALL LIGHT WITHIN REACH AND SAFETY PRECAUTIONS IN PLACE. REMOVED DISPOSABLE CHRISTINA PER PHYSICIANS ORDER, IN RELATION TO CAUSING IRRITATION AND RASH TO PT BACK AND BUTTOCKS.
[2024-06-18] MEDS ORDERED: Polyethylene Glycol 3350 17 GM/PKT PO PRN (11:00)
--- NOTE | 2024-06-18 13:06 | NUR ---
patient assisted back to bed from recliner.
--- NOTE | 2024-06-18 16:00 | NUR ---
PT BACK FROM ULTRASOUND, SITTING UP IN CHAIR WATCHING TV AT THIS TIME. NO S.S OF DISTRESS. DENIES ANY PAIN. CALL LIGHT WITHIN REACH AND SAFETY PRECAUTIONS IN PLACE.
--- NOTE | 2024-06-18 20:45 | NUR ---
PT RESTING NO DISTRESS NOTED ON ASSESSMENT. VS WNL ON RA. OINTMENT APPLIED TO HIS BACK AFTER NURSE WASHED AND DRIED IT. IV SITE FLUSHED WORKING PROPERLY SL. CALL LIGHT WITHIN REACH. BED ALARM ON. PLAN OF CARE ONGOING.
[2024-06-18] MEDS ORDERED: LABETALOL HCL 100 MG/TAB PO SCH (21:00)
[2024-06-19] VITALS (8 sets, daily range): BP systolic 91–147; BP diastolic 55–83
--- NOTE | 2024-06-19 | NUR ---
PT RESTING NO DISTRESS NOTED ON EXAM. CALL LIGHT WITHIN REACH. BED ALARM ON. PLAN OF CARE ONGOING.
--- NOTE | 2024-06-19 04:00 | NUR ---
PT RESTING NO DISTRESS NOTED ON EXAM. CALLL LIGHT WITHIN REACH. PLAN OF CARE ONGOING. BED ALARM ON.
[2024-06-19 05:31] LABS: HEMATOCRIT 36.5 % (39.0-50.0); HEMOGLOBIN 12.4 g/dl (14.0-18.0); MEAN CELL VOLUME 90.3 fL CALC (80.0-100.0); MEAN CORPUSCULAR HGB 30.7 pG CALC (26.0-32.0); RED BLOOD COUNT 4.04 mill/uL (4.70-6.10); RED CELL DISTRI WIDTH 13.5 % (11.5-15.5)
[2024-06-19 05:45] LABS: BILIRUBIN, TOTAL 0.5 mg/dL (0.2-1.3); CREATININE 1.1 mg/dL (0.7-1.3); POTASSIUM 3.8 mmol/l (3.5-5.1)
--- NOTE | 2024-06-19 08:28 | NUR ---
RECEIVED REPORT FROM NIGHTSHIFT NURSE ANNIE NUÑEZ. PT NOTED SITTING UP HIGH FOWLERS IN BED, EATING BREAKFAST. PT IS A/OX2 TO SELF AND PLACE, ON RM AIR. PT VERBAL RESPONSES THIS MORNING MINIMAL COMPARED TO YESTERDAY. NUSRING ASSESSMENT COMPLETED, MALE MARICARMEN NOTED WITH CLEAR YELLOW URINE OUPUT IN CANNISTER. CREAM APPLIED TO PT BACK FOR RASH, PRESENTS LESS IRRITATED AND RED TODAY. IV SITE APPEARS HEALTHY AND INTACT WITH FLUIDS RUNNING PER EMAR. EDUCATED PT ON PLAN OF CARE AND MED SCHEDULE TODAY. WILL REINFORCE. NO S/S OF DISTRESS. CALL LIGHT WITHIN REACH AND SAFETY PRECAUTIONS IN PLACE.
--- NOTE | 2024-06-19 09:49 | NUR ---
patient sitting up in recliner with two person assist.
--- NOTE | 2024-06-19 11:41 | NUR ---
S: JER TOSCANO is a 74 M who presents with PNEUMONIA, UTI, AND BACTEREMIA. All medications in patient's chart were reviewed. O: VS: BP 113/64, P 80, RR 20,T 96.6 f W 77kg, HT 67in, Scr= 1.1,CrCl= 57ml/min TROUGH-14 A: Blood culture SHOWS AEROCOCCUS Urine culture SHOWS ENTEROBACTER CLOACAE SUSCEPTABLE TO FLOROQUINOLONES P: Patient is on LEVOFLOXACIN 750MG IV Q24H AND VANCOMYCIN 1GM IV Q12H. Vancomycin ordered for pharmacy to dose. CONTINUE Vancomycin 1GM IV Q12H. Vancomycin trough is drawn before the 4th dose on 06/20/24 @2330. Vancomycin goal trough is between 15-20 mcg/ml. Pharmacy will follow and or advise on antibiotics use as needed.
--- NOTE | 2024-06-19 12:00 | NUR ---
GAS PLANT WORKER ASSISTED WORLD RENOWNED CHEF AND RESTAURANT OWNER TO GET PT UP INTO CHAIR, PT TOLERATED WELL AND ABLE TO STAND AND PIVOT WITH ASSIST. PT SITTING UP IN CHAIR, EATING LUNCH. NO S/S OF DISTRESS. CALL LIGHT WITHIN REACH AND SAFETY PRECAUTIONS IN PLACE.
--- NOTE | 2024-06-19 17:10 | NUR ---
SKI TECHNICIAN ASSISTED TILE HELPER WITH GETTING PT BACK INTO BED, POSITIONED HIGH FOWLERS AND SERVED DINNER. NO S/S OF DISTRESS. PT DENIES ANY PAIN AT THIS TIME. CALL LIGHT WITHIN REACH AND SAFETY PRECAUTIONS IN PLACE.
--- NOTE | 2024-06-19 20:00 | NUR ---
RECEIVED REPORT FROM NURSE LOREN, PATIENT ALERT TO NAME AND BIRTHDAY, PATIENT PLEASANT, HARD OF HEARING, PATIENT IV ON RFA G 22 NS @ KVO AND ANOTHER 22 ON RFA SALINE LOCK, PATIENT ON TELEMETRY, LUNG SOUNDS CLEAR, RASH NOTED PATIENT BACK, CREAM APLLIED ORDERED, PATEIENT ON MALE PUREWICK DRAINING YLLOW COLORED URINE CALL LIGHT IN REACHED. BED ALARM IN PLACED.
[2024-06-20] VITALS: BP 91/55
--- NOTE | 2024-06-20 | NUR ---
PATINET RESTING IN BED, EYES CLOSED, BREATHING EVEN UNLABORED, BED ALARM IN PLACED.
[2024-06-20 04:00] VITALS: BP 132/80
[2024-06-20 04:30] VITALS: BP 132/80
--- NOTE | 2024-06-20 04:46 | NUR ---
PATIENT RESTING IN BED, NOT IN DISTRESS, BED ALARM IN PLACE.
[2024-06-20 04:59] LABS: HEMATOCRIT 36.3 % (39.0-50.0); HEMOGLOBIN 12.1 g/dl (14.0-18.0); MEAN CELL VOLUME 90.3 fL CALC (80.0-100.0); MEAN CORPUSCULAR HGB 30.1 pG CALC (26.0-32.0); MEAN CORPUSCULAR HGB CONC 33.3 g/dL CAL (32.0-36.0); RED BLOOD COUNT 4.02 mill/uL (4.70-6.10); RED CELL DISTRI WIDTH 13.5 % (11.5-15.5)
[2024-06-20 05:13] LABS: ALBUMIN 3.1 g/dL (3.2-5.0); BILIRUBIN, TOTAL 0.5 mg/dL (0.2-1.3); CREATININE 0.9 mg/dL (0.7-1.3); POTASSIUM 3.6 mmol/l (3.5-5.1); TOTAL PROTEIN 6.2 g/dL (6.3-8.2)
[2024-06-20 07:45] VITALS: BP 125/61
[2024-06-20 08:18] VITALS: BP 125/61
[2024-06-20] MEDS ORDERED: ROCEPHIN1 G1 IV (09:30)
[2024-06-20] MEDS ORDERED: NORVASC5 M1 PO (09:30)
[2024-06-20] MEDS ORDERED: LISINOPRIL20 M1 PO (09:30)
[2024-06-20] MEDS ORDERED: NORMODYNE/TRAN100 MG PO (09:30)
[2024-06-20 11:56] VITALS: BP 102/58
[2024-06-20] MEDS ORDERED: SODIUM CHLORIDE 0.9% 250 ML IV ONE (12:26)
--- NOTE | 2024-06-20 12:57 | NUR ---
REPORT GIVEN JORDAN AT [facility].
--- NOTE | 2024-06-20 13:08 | NUR ---
PT LEFT THE UNIT VIA WHEELCHAIR TRANSPORT WITH BELONGINGS IN HAND. TELE MONITOR BLACED IN BIN AT NURSES STATION.
== END 2024-06-20 13:08 | DRG 689 ==
LOC: ED 08:32 → ED-I 09:51 → ED 09:51 → ED-I 12:51 → ED 13:00 → MS2 13:01
PROVIDERS: Family Medicine; Nurse Practitioner Family; ADMIT Internal Medicine; ATTEND Internal Medicine
DX: N30.00 Acute cystitis without hematuria (principal); J18.9 Pneumonia, unspecified organism; F10.239 Alcohol dependence with withdrawal, unspecified; F10.27 Alcohol dependence with alcohol-induced persisting dementia; Z59.01 Sheltered homelessness; R78.81 Bacteremia; B96.89 Other specified bacterial agents as the cause of diseases classified elsewhere; I10 Essential (primary) hypertension; E11.9 Type 2 diabetes mellitus without complications; I48.0 Paroxysmal atrial fibrillation; I25.10 Atherosclerotic heart disease of native coronary artery without angina pectoris; I49.5 Sick sinus syndrome; E78.5 Hyperlipidemia, unspecified; H91.91 Unspecified hearing loss, right ear; I25.2 Old myocardial infarction; L23.9 Allergic contact dermatitis, unspecified cause; T46.5X6A Underdosing of other antihypertensive drugs, initial encounter; T38.3X6A Underdosing of insulin and oral hypoglycemic [antidiabetic] drugs, initial encounter; Z91.128 Patient's intentional underdosing of medication regimen for other reason; Z91.81 History of falling; Z95.5 Presence of coronary angioplasty implant and graft; Z95.0 Presence of cardiac pacemaker; Z95.1 Presence of aortocoronary bypass graft; Z79.84 Long term (current) use of oral hypoglycemic drugs; Z20.822 Contact with and (suspected) exposure to COVID-19
CPT/HCPCS: J0692; J1650; J2060; J3370; Q9967